=== PATIENT | female | born 1995 | race Caucasian/White ===

== ENCOUNTER → 2016-03-20 | Outpatient (CLI) | payer BC | LOC: MOB LAB 10:20 | PROVIDERS: ATTEND Student in an Organized Health Care Education/Training Program | DX: Z34.02 Encounter for supervision of normal first pregnancy, second trimester (principal); Z3A.16 16 weeks gestation of pregnancy | CPT/HCPCS: 87491; 87591 ==

== ENCOUNTER → 2016-04-18 | Outpatient (CLI) | payer BC ==
--- NOTE | 2016-04-18 15:06 | DI ---
US OB GTE 14 WEEKS,04/18/2016 9:40 AM: Clinical History: anatomic survey. Previous Exam: February 24, 2016 Findings: Multiple grayscale and color Doppler sonographic images are obtained through the pelvis demonstrating a normal cervix which is long and closed measuring 3.4 cm in length. Amniotic fluid index is subjectively normal. There is a single live intrauterine gestation in vertex presentation. There is normal spontaneous motion of the limbs and diaphragms. Detected Doppler heart tones measure 140. Estimated gestational age was determined by a composite of biparietal diameter, head circumference, a bdominal circumference and femur length yielding an estimated gestational age by ultrasound of 20 wee ks 4 days. Estimated weight was 368 g (49th percentile.) anatomic survey is within normal limits. Impression: Single live intrauterine gestation with size equal to dates.
== END ==
LOC: US 09:33
PROVIDERS: ATTEND Student in an Organized Health Care Education/Training Program
DX: Z36 Encounter for antenatal screening of mother (principal); Z3A.20 20 weeks gestation of pregnancy
CPT/HCPCS: 76805

== ENCOUNTER → 2016-06-06 | Outpatient (CLI) | payer BC ==
[2016-06-06 08:24] LABS: HEMATOCRIT 35.7 % (37.0-47.0); HEMOGLOBIN 11.9 g/dL (12.0-16.0); MEAN CORPUSCULAR HEMOGLOBIN 32.3 PG (27-31); MEAN CORPUSCULAR HGB CONC 33.3 g/dL (33-37); RED BLOOD COUNT 3.68 10^6/uL (4.20-5.40)
== END ==
LOC: LAB 07:07
PROVIDERS: ATTEND Student in an Organized Health Care Education/Training Program
DX: Z36 Encounter for antenatal screening of mother (principal); Z3A.27 27 weeks gestation of pregnancy
CPT/HCPCS: 36415; 82950; 85027

== ENCOUNTER 2016-06-08 09:13 | Outpatient (CLI) | payer BC ==
[2016-06-08] MEDS ORDERED: NORMAL SALINE 10 ML SYRINGE FLUSH IVP PRN (09:37)
[2016-06-08 10:00] VITALS: RESP 18; TEMP 98.4
[2016-06-08] MEDS: CALCIUM CARBONATE 500 MG (TUMS) CHEWABLE TABLET PO ONE (11:07)
[2016-06-08] MEDS: LANSOPRAZOLE 30 MG SOLUTAB PO ONE (11:08)
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
== END 2016-06-08 13:31 | disposition home or self-care (01) ==
LOC: OBOP 09:13
PROVIDERS: ATTEND Student in an Organized Health Care Education/Training Program
DX: O26.892 Other specified pregnancy related conditions, second trimester (principal); R10.84 Generalized abdominal pain; Z3A.27 27 weeks gestation of pregnancy
CPT/HCPCS: 59025; 76815; 81003; 99211

== ENCOUNTER → 2016-06-15 | Outpatient (CLI) | payer BC ==
--- NOTE | 2016-06-15 22:07 | DI ---
LIMITED OBSTETRICAL ULTRASOUND WITH CORINA AND CORD DOPPLER ULTRASOUND, 06/15/2016 1:55 PM Clinical History: Uterine size-dates discrepancy in the third trimester. Small for dates. Previous Exam: 06/08/2016. ADJUSTED LMP: 11/26/2015. There is a single live IUP currently in vertex presentation. Amnionic fluid content is normal for thi s stage of . Amniotic fluid index is 20.7 cm. activity is observed as follows: Cardiac , extremity, and respiratory. The placenta is anterior corpus and Grade 1. heart rate varies be tween 136-150 beats/minute and is regular. Cord Doppler ultrasound shows diastolic flow. Systolic/irvin stolic ratios are 4.1, 3.2 and 3.1 BPD, HC, AC, and FL measurements are 73 mm, 279 mm, 270 mm, and 55 mm, respectively. These measurements correspond to EGA values of 29 weeks 3 days, 30 weeks 4 days, 3 1 weeks 1 day, and 29 weeks 1 day, respectively. Composite EGA is 30 weeks 1 day The [place] EDC is 017. EDC by adjusted LMP is 09/01/2016. LMP percentile is 86%. Estimated weight is 1538 g, plus o r minus 225 g. Readin. Single live fetus with vertex presentation and normal amniotic fluid content for this stage of pr egnancy. CORINA is 20.7 cm. Placenta is anterior corpus and grade 1. 2. The composite EGA is 30 weeks 1 day with an ultrasound EDC of 08/23/2016. Based on the adjusted LM P date of 11/26/2015, the EDC would be 09/01/2016. 3. LMP percentile is 86%. Estimated weight is 1538 g, plus or minus 225 g.
== END ==
LOC: US 13:44
PROVIDERS: ATTEND Student in an Organized Health Care Education/Training Program
DX: O26.843 Uterine size-date discrepancy, third trimester (principal); Z3A.28 28 weeks gestation of pregnancy
CPT/HCPCS: 76815

== ENCOUNTER 2016-07-01 11:40 | Emergency (ER) | payer BC ==
[2016-07-01 12:16] LABS: BILIRUBIN,URINE NEGATIVE (NEG); COLOR,URINE YELLOW; GLUCOSE, URINE (UA) NEGATIVE (NEG); NITRATE,URINE NEGATIVE (NEG); OCCULT BLOOD,URINE NEGATIVE (NEG); PROTEIN,URINE NEGATIVE (NEG); UROBILINOGEN,URINE 0.2 EU/dL (0.2)
[2016-07-01 12:17] VITALS: RESP 16; TEMP 97.1
[2016-07-01 12:20] LABS: CLARITY,URINE CLEAR (CLEAR)
[2016-07-01] MEDS ORDERED: Sodium Chloride 0.9% 1,000 ML PRIMARY IV ONE (12:20)
[2016-07-01] MEDS ORDERED: NORMAL SALINE 10 ML SYRINGE FLUSH IVP PRN (12:20)
[2016-07-01 12:21] LABS: URINE SAMPLE TYPE CLEAN CATCH URINE
[2016-07-01] MEDS ORDERED: ONDANSETRON 4 MG/2 ML VIAL IVP ONE (12:21)
[2016-07-01 12:28] LABS: SQUAMOUS EPITHELIAL CELL,UR FEW
[2016-07-01 12:29] LABS: BASOPHILS # (AUTO) 0.05 10*3/UL; BASOPHILS % (AUTO) 0.5 % (0-1); EOSINOPHILS % (AUTO) 1.8 % (0-8); HEMATOCRIT 34.4 % (37.0-47.0); HEMOGLOBIN 11.5 g/dL (12.0-16.0); LYMPHOCYTES # (AUTO) 1.89 10*3/uL; MEAN CORPUSCULAR HEMOGLOBIN 31.3 PG (27-31); MEAN CORPUSCULAR HGB CONC 33.4 g/dL (33-37); MEAN CORPUSCULAR VOLUME 93.7 FL (81-99); MONOCYTES # (AUTO) 0.86 10*3/UL (0.3-0.8); MONOCYTES % (AUTO) 7.9 % (5-15); NEUTROPHILS # (AUTO) 7.88 10*3/UL; RED BLOOD COUNT 3.67 10^6/uL (4.20-5.40)
[2016-07-01 12:31] LABS: PLATELET MORPHOLOGY COMMENT NORMAL MORPHOLOGY (NORM); RBC MORPHOLOGY COMMENT NORMAL MORPHOLOGY (NORM); WBC MORPHOLOGY COMMENT NORMAL MORPHOLOGY (NORM)
[2016-07-01 12:35] LABS: BLOOD UREA NITROGEN 5 mg/dL (7-22); CALCIUM 8.5 mg/dL (8.7-10.7); EST GLOMERULAR FILTRATION > 60 (>60 ml/min/1.73m(2)); SERUM ALBUMIN 3.2 g/dL (3.5-4.8)
[2016-07-01] MEDS: MORPHINE SULFATE 4 MG/1 ML IVP ONE ×2 (13:15→13:31)
[2016-07-01] MEDS ORDERED: ACETAMINOPHEN WITH CODEINE 300 MG/30 MG TABLET PO ONE (14:17)
--- NOTE | 2016-07-01 14:40 | PDOC ---
Sore Throat/Dental Pain HPI - General Chief Complaint: Nasal/Mouth Problem /Injury Stated Complaint: LEFT LOWER DENTAL PAIN Date Seen by Provider: 07/01/16 Time Seen by Provider: 11:45 Source: POSITIVE: Patient Exam Limitations: POSITIVE: No limitations Nurse's Notes Reviewed & Considered: Yes - History of Present Illness Initial Comments: The patient is a 20-year-old at approximately 31 weeks gestational age who presents to the emergency department with left lower molar pain. She states that she has a cavity in one of her left lower molars. Over the past several days she has had progressively worsening pain. She has tried over-the- counter oral gel as well as Tylenol without any relief. She did also try the dental wax. She denies any fevers or chills or difficulty swallowing. In regard to her she reports that today she does not think the baby has been moving as much as normal. She denies any abdominal pain or cramping, urinary symptoms, vaginal bleeding or discharge. She sees Dr. Chavez for her OB care. - Patient Home Medications Home Medications: Home Medications Pnv95/Iron Fum/Folic Acid [ Caplet] 1 each PO DAILY tab 02/21/16 Escitalopram Oxalate [Lexapro] 1 tab PO QD #30 tab 04/17/16 Acetaminophen-Cod #3 Tablet [Tylenol with Codeine #3 Tablet] 1 each PO Q6H PRN # 15 tablet 07/01/16 Amoxicillin 500 mg PO Q8H #21 cap 07/01/16 - Patient Allergies Allergies/Adverse Reactions: Allergies Allergy/AdvReac Type Severity Reaction Status Date / Time No Known Allergies Allergy Verified 07/01/16 11:50 Past Medical History - heen HEENT History: Denies History Cardiovascular History: Denies History Respiratory History: Denies History Gastrointestinal History: Denies History Genitourinary History: Denies History Endocrine History: Denies History Musculoskeletal History: Denies History Prosthesis or Implant: No Neurological History: Denies History Blood Disorders: Denies History Psychiatric History: Depression Additional Psychiatric History: DIFFICULTY SLEEPING History of Sexually Transmitted Diseases: No Female Reproductive History: Denies History LMP: 11/2016 Additional Obstetrical History: CURRENTLY 31-32 WEEKS : 1 Para: 0 Cancer History: Denies History In Past Year Been Physically Harmed or Verbally Threatened: No (PER PATIENT) History of MDRO: No History of Other Communicable Diseases: No Tobacco Use: Never Smoker Alcohol Use: None Substance Use Type: None Previous Surgical History: Yes Type / Date of Surgery: BILATERAL EUSTACHIAN TUBES, MULTIPLE DENTAL SURGERIES A CHILD Anesthesia Reactions: No Malignant Hyperthermia: No Family History of Malignant Hyperthermia: No Significant Family History: No pertinent family hx Past Medical History Reviewed: Reviewed - No Changes ROS - Limitations ROS Limitations: No Limitations [place]: DENIES: Chills, Fever Cardiovascular: REPORTS: Denies Cardiac Symptoms Respiratory: REPORTS: Denies Resp Symptoms Gastrointestinal: DENIES: Abdominal Pain Sore Throat/Dental Pain Exam - General Appearance General Appearance: REPORTS: Alert, Cooperative, No Acute Distress - HEENT Head / Face: POSITIVE: No Facial Swelling Eyes: POSITIVE: Inspection Normal Ears: POSITIVE: Ears Normal Inspection Nose: POSITIVE: Inspection Normal Oropharynx: POSITIVE: Other (Examination left lower molar does reveal cavity with dental wax in place, there is some surrounding erythema and mild swelling) Neck: POSITIVE: Supple, Other (She does have some tenderness in the left submandibular region without any obvious swelling). NEGATIVE: Lymphadenopathy - Respiratory Respiratory: REPORTS: No Respiratory Distress, Breath Sounds Normal - Cardiovascular Cardiovascular: REPORTS: Regular Rate and Rhythm, Heart Sounds Normal - Abdomen Abdomen: Soft: (All Quadrants) Additional Abdominal Details: abdomen, nontender - Skin Skin: REPORTS: Intact. DENIES: Rash - Neurological / Psychological Neurological: POSITIVE: Oriented X3, Motor Normal, Sensation Normal Sore Throat/Dental Progress - Results Reviewed by me Lab Results Reviewed: Yes Lab Results:: Laboratory Results 07/01/16 07/01/16 Range/Units 12:00 12:20 WBC 10.94 H (4.8-10.8) 10^3/uL RBC 3.67 L (4.20-5.40) 10^6/uL Hgb 11.5 L (12.0-16.0) g/dL Hct 34.4 L (37.0-47.0) % MCV 93.7 (81-99) FL MCH 31.3 H (27-31) PG MCHC 33.4 (33-37) g/dL RDW Std Deviation 41.8 (39-50) fL RDW Coeff of Alicia 12.6 (11.5-14.5) % Plt Count 201 (140-350) 10*3/uL MPV 10.0 (7.4-12.2) FL Immature Gran % (Auto) 0.5 (0-5) % Neut % (Auto) 72.0 (50-80) % Lymph % (Auto) 17.3 (10-50) % Davis % (Auto) 7.9 (5-15) % Eos % (Auto) 1.8 (0-8) % Baso % (Auto) 0.5 (0-1) % Immature Gran # (Auto) 0.06 10*3/UL Neut # (Auto) 7.88 10*3/UL Lymph # (Auto) 1.89 10*3/uL Davis # (Auto) 0.86 H (0.3-0.8) 10*3/UL Eos # (Auto) 0.20 10*3/UL Baso # (Auto) 0.05 10*3/UL WBC Morphology Comment Normal morphology (NORM) Plt Morphology Comment Normal morphology (NORM) RBC Morph Comment Normal morphology (NORM) Sodium 136 (135-145) meq/L Potassium 4.1 (3.8-5.2) meq/L Chloride 107 (98-112) meq/L Carbon Dioxide 21 L (23-33) meq/L Anion Gap 8 (5-20) BUN 5 L (7-22) mg/dL Creatinine 0.5 (0.50-1.20) mg/dL Estimated GFR > 60 (>60 ml/min/1.73m(2)) BUN/Creatinine Ratio 10.00 (6-20) Glucose 76 L (78-110) mg/dL Calculated Osmolality 277.0 (267-292) mOsm/kg Calcium 8.5 L (8.7-10.7) mg/dL Total Bilirubin 0.4 (0.3-1.2) mg/dL AST 16 (8-39) IU/L ALT 22 (9-52) IU/L Alkaline Phosphatase 118 (38-126) IU/L Total Protein 6.6 (6.1-8.0) g/dL Albumin 3.2 L (3.5-4.8) g/dL Globulin 3.4 (2.50-4.10) g/dL Albumin/Globulin Ratio 0.90 L (1.3-2.0) mg/g Ur Collection Type Clean catch urine Urine Color Yellow Urine Clarity Clear (CLEAR) Urine pH 6.0 (5.0-8.5) Ur Specific [place] <=1.005 (1.005-1.030) Urine Protein Negative (NEG) mg/dl Urine Glucose (UA) Negative (NEG) mg/dL Urine Ketones Negative (NEG) Urine Occult Blood Negative (NEG) Urine Nitrate Negative (NEG) Urine Bilirubin Negative (NEG) Urine Urobilinogen 0.2 (0.2) EU/dL Ur Leukocyte Esterase Trace (NEG) Urine RBC None (NONE) /hpf Urine WBC 2-4 (NONE) Ur Squamous Epith Cells Few (NONE) Ur Renal Epithelial Cell None (NONE) Urine Crystals None Urine Bacteria None (NONE) Urine Casts None (NONE) Urine Mucus None (NONE) Urine Trichomonas None (NONE) Urine Yeast None (NONE) Ur Culture Indicated? Culture not set - Patient's Progress MDM / ED Course: The patient does have a dental abscess. Because of her reports of decreased movement I did contact Dr. Chavez who was on-call for OB and is the patient's OB provider. She recommended nonstress test and urinalysis. On the nonstress test the patient was showing some mild contractions. An IV was subsequent restarted and she received 1 L bolus of normal saline. She also received morphine 4 mg IV and Zofran 4 mg IV for pain and nausea. After fluids and emptying her bladder the current contractions resolved. She has a reactive strip. Dr. Chavez felt that the patient could be sent home with treatment for her dental infection. She was started on amoxicillin 500 mg 3 times a day for 7 days. She was given Tylenol with codeine which she can take one every 4-6 hours as needed for pain. She is advised return to the emergency room if increased pain, increased swelling of her jaw, fever, difficulty swallowing or dehydration, any related symptoms. She was advised follow-up with a dentist. She will also follow-up with Dr. Chavez regarding her OB care. - Consult Counseled: POSITIVE: Patient, RE: Lab Results, RE: DX, RE: Need for F/U Patient Care Time - Estimated PCT Patient Care Time (In Minutes): 25 Vital Signs - Recent Vital Signs Vital Signs: Vital Signs (Last 8 hours) Temp Pulse Resp BP Pulse Ox 07/01/16 11:40 97.1 F 73 16 110/80 97 - VS Reviewed Vital Signs Reviewed: Yes Discharge Clinical Impression: Dental abscess Discharge Disposition: Discharged to Home Condition: Stable Prescriptions / Orders: Amoxicillin 500 mg PO Q8H #21 cap Acetaminophen-Cod #3 Tablet [Tylenol with Codeine #3 Tablet] 1 each PO Q6H PRN # 15 tablet PRN Reason: Pain Patient Instructions Given at Discharge: Dental Abscess (ED) Additional Instructions: Start amoxicillin 500 mg 3 times a day for 7 days. Tylenol with codeine 1 every 6 hours as needed for pain. Push fluids. Return to the emergency room if increased pain or swelling, difficulty swallowing, dehydration, any worsening or change in symptoms. Recommend dental follow-up, call tomorrow to arrange appointment. Follow Up With: OZZIE CHAVEZ [Primary Care Provider] -
== END 2016-07-01 15:02 | disposition home or self-care (01) ==
LOC: ER 11:40
DX: O26.893 Other specified pregnancy related conditions, third trimester (principal); K04.7 Periapical abscess without sinus; Z3A.31 31 weeks gestation of pregnancy
CPT/HCPCS: 80053; 81001; 81003; 85025; 96361; 96374; 96375; 99283; J2270; J2405; J7030

== ENCOUNTER 2016-07-18 11:35 | Observation (INO) | payer BC ==
[2016-07-18] MEDS ORDERED: NORMAL SALINE 10 ML SYRINGE FLUSH IVP PRN (12:10)
[2016-07-18] MEDS: Lactated Ringers 1,000 ML PRIMARY IV SCH ×2 (12:50→23:25)
[2016-07-18 13:00] LABS: HEMOGLOBIN 11.8 g/dL (12.0-16.0); MEAN CORPUSCULAR HGB CONC 32.8 g/dL (33-37); MEAN CORPUSCULAR VOLUME 91.6 FL (81-99); MEAN PLATELET VOLUME 10.2 FL (7.4-12.2); RED BLOOD COUNT 3.93 10^6/uL (4.20-5.40)
[2016-07-18] MEDS: NIFEdipine 10 MG CAPSULE PO SCH ×4 (14:25→23:00)
--- NOTE | 2016-07-18 14:35 | DI ---
LIMITED OBSTETRICAL ULTRASOUND, 07/18/2016 12:44 PM Clinical History: contractions. Vaginal bleeding. Previous Exam: 06/15/2016. ADJUSTED LMP: 11/26/2015. There is a single live IUP currently in vertex presentation. Amnionic fluid content is normal. Amniot ic fluid index is 19.2 cm. activity is observed as follows: cardiac and extremity. The placenta is anterior corpus and Grade 2. Along the inferior margin of the placenta, there is a small collecti on of fluid in the subchorionic space. This fluid at most would be in the range of 2 mL in volume. Th ere is no evidence of abruption. heart rate is 142 beats/minute and regular. Readin. Single live fetus with vertex presentation and normal amniotic fluid content. Amniotic fluid inde x is 19.2 cm. 2. Placenta is anterior corpus and grade 2. There is no evidence of an abruption although there is a small fluid collection in the subchorionic space along the inferior margin of the placenta. The volu me of this fluid is probably in the range of 2 mL.
[2016-07-18] MEDS: BETAMET ACET/BETAMET NA PH 6 MG/1 ML - 5 ML IM SCH (14:55)
[2016-07-18] MEDS ORDERED: HYDROcodone-APAP 5 MG -325 MG TABLET PO ONE (15:14)
[2016-07-18 15:41] LABS: URINE SAMPLE TYPE CLEAN CATCH URINE; URINE SPECIFIC GRAVITY - MAN 1.007
[2016-07-18 15:42] LABS: AMPHETAMINE SCREEN NEGATIVE (NEG); CANNABINOID SCREEN,URINE NEGATIVE (NEG); COCAINE SCREEN NEGATIVE (NEG); METHADONE URINE SCREEN NEGATIVE (NEG); METHAMPHETAMINES SCREEN,URINE NEGATIVE (NEG); OPIATE SCREEN,URINE POSITIVE (NEG); TRICYCLIC ANTIDEPRESSANT,URINE NEGATIVE (NEG)
[2016-07-18] MEDS ORDERED: CLOTRIMAZOLE 21 GM 3-DAY VAG CREAM VAGINAL ONE (16:08)
[2016-07-18] MEDS: metroNIDAZOLE Tab 500 MG TAB PO SCH ×2 (16:09→21:55)
[2016-07-18] MEDS: CLOTRIMAZOLE 21 GM 3-DAY VAG CREAM VAGINAL SCH ×2 (16:10→21:55)
[2016-07-18] MEDS ORDERED: NIFEdipine 10 MG CAPSULE PO ONE (19:00)
[2016-07-18] MEDS ORDERED: CLOTRIMAZOLE 21 GM 3-DAY VAG CREAM VAGINAL SCH (21:00)
[2016-07-18] MEDS ORDERED: metroNIDAZOLE Tab 500 MG TAB PO SCH (21:00)
[2016-07-18] MEDS ORDERED: ESCITALOPRAM 10 MG TABLET PO SCH (22:30)
[2016-07-18] MEDS: AMOXICILLIN 500 MG CAPSULE PO SCH (23:30)
[2016-07-19] MEDS: NIFEdipine 10 MG CAPSULE PO SCH ×3 (03:13→15:10)
[2016-07-19] MEDS ORDERED: Prenatal Multivitamin Tab 1 TAB TAB PO SCH (09:00)
[2016-07-19] MEDS: AMOXICILLIN 500 MG CAPSULE PO SCH (09:31)
[2016-07-19] MEDS: metroNIDAZOLE Tab 500 MG TAB PO SCH (09:39)
[2016-07-19] MEDS: CLOTRIMAZOLE 21 GM 3-DAY VAG CREAM VAGINAL SCH (09:39)
[2016-07-19] MEDS: Lactated Ringers-OB Dept 1,000 ML PRIMARY IV SCH (15:10)
[2016-07-19] MEDS: Lactated Ringers 1,000 ML PRIMARY IV SCH (15:10)
[2016-07-19 15:24] VITALS: RESP 18; TEMP 97.8
[2016-07-19] MEDS: BETAMET ACET/BETAMET NA PH 6 MG/1 ML - 5 ML IM SCH (15:39)
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
--- NOTE | 2016-07-22 21:52 | OB.PROGRES ---
Date and Time of Service: 07/19/16 @ 1034 Interval History: Pt reports feeling much better today. Denies any cramping, abdominal or pelvic pain. No further spotting or vaginal bleeding. No leakage of fluid. Baby is moving around well. She did receive procardia every 4 hours through the noc and tolerated this well. Normal voiding. No nausea or vomiting. Tolerating regular diet. Objective - Cervical Exam Cervical Exam: no recheck since yesterday [place]: no contractions or irritability noted since last noc. Heart Rate: reactive, no decels noted. + accels and moderate variability Heart Rate Interpretation Category: Category I - Labs CBC and BMP: 07/18/16 12:55 - Vital Signs Last Taken Vital Signs: Vital Signs - Last Taken Temperature 97.8 F 07/19/16 07:00 Pulse Rate 83 07/19/16 09:00 Respiratory Rate 18 07/19/16 08:00 Blood Pressure 122/61 07/19/16 09:00 Pulse Ox 98 07/18/16 19:18 Assessment and Plan - Patient Problems (1) Abdominal pain during Status: Acute Qualifiers: Trimester: third trimester Qualified Description: Abdominal pain during , third trimester Qualifier Code(s): (O26.893) Other specified related conditions, third trimester, (R10.9) Unspecified abdominal pain - Assessment / Plan Additional Assessment/Plan Details: -pt received 1st dose of celestone yesterday, will get second dose this afternoon. -will attend dental visit this afternoon to get her decayed tooth pulled-- remains on amoxicillin for this. -continue flagyl for BV x 1 week total. -continue clotrimazole for yeast vaginitis x 1 week total. -push fluids. Take it easy at home. -take procardia every 4 hours for a few days and then may just use it q4h prn for more than 4 painful contractions in 1 hour. -f/u: as scheduled in the office next week/sooner prn.
== END 2016-07-19 15:45 | disposition home or self-care (01) ==
LOC: OBOP 11:35 → OBIP 22:29
PROVIDERS: ADMIT Family Medicine; ATTEND Family Medicine
DX: O26.893 Other specified pregnancy related conditions, third trimester (principal); R10.9 Unspecified abdominal pain
CPT/HCPCS: 76815; 80305; 81003; 82542; 82731; 85027; 87150; 87480; 87491; 87510; 87591; 87660; J0702; 96372; J7120

== ENCOUNTER 2016-07-22 20:08 | Observation (INO) | payer BC ==
[~2016-07-22 20:08] MED LIST: NORMAL SALINE 10 ML SYRINGE FLUSH IVP PRN
[2016-07-22] MEDS: Lactated Ringers 1,000 ML PRIMARY IV SCH (21:30)
[2016-07-22 21:39] LABS: HEMATOCRIT 33.3 % (37.0-47.0); HEMOGLOBIN 11.1 g/dL (12.0-16.0); MEAN CORPUSCULAR HEMOGLOBIN 30.7 PG (27-31); MEAN CORPUSCULAR HGB CONC 33.3 g/dL (33-37); MEAN CORPUSCULAR VOLUME 92.2 FL (81-99); MEAN PLATELET VOLUME 10.2 FL (7.4-12.2); RED BLOOD COUNT 3.61 10^6/uL (4.20-5.40)
[2016-07-22 21:42] LABS: BILIRUBIN,URINE NEGATIVE (NEG); CLARITY,URINE CLEAR (CLEAR); COLOR,URINE YELLOW; GLUCOSE, URINE (UA) NEGATIVE (NEG); NITRATE,URINE NEGATIVE (NEG); OCCULT BLOOD,URINE NEGATIVE (NEG); PROTEIN,URINE NEGATIVE (NEG); UROBILINOGEN,URINE 0.2 mg/dL (0.2)
[2016-07-22 21:43] LABS: URINE SAMPLE TYPE CLEAN CATCH URINE
[2016-07-22 21:46] LABS: BACTERIA,URINE RARE; RBC,URINE 0 /hpf; SQUAMOUS EPITHELIAL CELL,UR MODERATE; WBC,URINE 0
[2016-07-22 21:49] LABS: BLOOD UREA NITROGEN 11 mg/dL (7-22); CALCIUM 8.7 mg/dL (8.7-10.7); EST GLOMERULAR FILTRATION > 60 (>60 ml/min/1.73m(2)); SERUM ALBUMIN 3.1 g/dL (3.5-4.8)
[2016-07-22] MEDS ORDERED: NIFEdipine 10 MG CAPSULE PO ONE ×2 (22:07→22:13)
[2016-07-22] MEDS ORDERED: LIDOCAINE W/ SODIUM BICARB 0.5 ML SYR SUBD PRN (22:34)
[2016-07-22] MEDS ORDERED: NORMAL SALINE 10 ML SYRINGE FLUSH IVP PRN (22:34)
[2016-07-22] MEDS ORDERED: ONDANSETRON 4 MG/2 ML VIAL IVP PRN (22:34)
--- NOTE | 2016-07-22 22:55 | OB.PROGRES ---
Interval History: The patient is a 20-year-old with an IUP at 34 weeks gestation who presented to labor and delivery this evening after having contractions for most of the day with a contractions increasing in frequency and discomfort throughout the day. Patient has been on Procardia 20 mg by mouth every 4 hours for several days since she was admitted for observation earlier in the week for contractions (07/18/2016-07/19/2016). At that time, the patient's cervix was closed. Patient did receive a course of Celestone 12 mg IM every 24 hours 2 doses. That was when the patient was placed on Procardia. Patient had formal ultrasound which showed the placenta to be anterior and a grade 2 placenta. There was no evidence of placental abruption. There was a small collection of fluid-2 mL-inferiorly at the edge of the placenta but no specific placental abruption noted per radiology. Prior to several days ago, patient did have contractions a couple of months ago according to the patient's mother and presented to labor and delivery but was sent home. Patient also states that she has mild right upper quadrant discomfort. Patient not sure if this is secondary to her petite size and the baby kicking her. The patient has been on amoxicillin for a tooth abscess, metronidazole for bacterial vaginosis and also was treated for a vaginal yeast infection. The patient's current medications are amoxicillin, metronidazole, Procardia, Lexapro 5 mg daily, multivitamin. Past medical history significant for depression and anxiety. Past surgical history noncontributory No known drug allergies. Patient is allergic to tomatoes. Patient quit tobacco couple months ago. No alcohol, no drugs during . Objective - Cervical Exam Cervical Exam: 03/26/- cephalic. Cervix is moderate in consistency. No blood with my cervical exam. [place]: Contractions every 1-3 minutes Heart Rate Interpretation Category: Category I - Labs CBC and BMP: 07/22/16 21:36 07/22/16 21:36 Labs - Last 24 Hours: Laboratory Results 07/22/16 Range/Units 21:36 WBC 11.84 H (4.8-10.8) 10^3/uL RBC 3.61 L (4.20-5.40) 10^6/uL Hgb 11.1 L (12.0-16.0) g/dL Hct 33.3 L (37.0-47.0) % MCV 92.2 (81-99) FL MCH 30.7 (27-31) PG MCHC 33.3 (33-37) g/dL RDW Std Deviation 41.3 (39-50) fL RDW Coeff of Alicia 12.8 (11.5-14.5) % Plt Count 253 (140-350) 10*3/uL MPV 10.2 (7.4-12.2) FL Sodium 134 L (135-145) meq/L Potassium 4.0 (3.8-5.2) meq/L Chloride 106 (98-112) meq/L Carbon Dioxide 21 L (23-33) meq/L Anion Gap 7 (5-20) BUN 11 (7-22) mg/dL Creatinine 0.5 (0.50-1.20) mg/dL Estimated GFR > 60 (>60 ml/min/1.73m(2)) BUN/Creatinine Ratio 22.00 H (6-20) Glucose 81 (78-110) mg/dL Calculated Osmolality 275.0 (267-292) mOsm/kg Calcium 8.7 (8.7-10.7) mg/dL Total Bilirubin 0.3 (0.3-1.2) mg/dL AST 14 (8-39) IU/L ALT 19 (9-52) IU/L Alkaline Phosphatase 126 (38-126) IU/L Total Protein 5.9 L (6.1-8.0) g/dL Albumin 3.1 L (3.5-4.8) g/dL Globulin 2.8 (2.50-4.10) g/dL Albumin/Globulin Ratio 1.10 L (1.3-2.0) mg/g Ur Collection Type Clean catch urine Urine Color Yellow Urine Clarity Clear (CLEAR) Urine pH 7.0 (5.0-8.5) Ur Specific [place] 1.010 (1.005-1.030) Urine Protein Negative (NEG) mg/dl Urine Glucose (UA) Negative (NEG) mg/dL Urine Ketones Negative (NEG) Urine Occult Blood Negative (NEG) Urine Nitrate Negative (NEG) Urine Bilirubin Negative (NEG) Urine Urobilinogen 0.2 (0.2) mg/dL Ur Leukocyte Esterase Negative (NEG) Urine RBC 0 (NONE) /hpf Urine WBC 0 (NONE) Ur Squamous Epith Cells Moderate (NONE) Ur Renal Epithelial Cell None (NONE) Urine Crystals None Urine Bacteria Rare (NONE) Urine Casts None Urine Mucus None (NONE) Urine Trichomonas None (NONE) Urine Yeast None (NONE) Ur Culture Indicated? Culture not set Fibronectin Positive Fibronect Spec Quality No - Vital Signs Last Taken Vital Signs: Vital Signs - Last Taken Temperature 98.2 F 07/22/16 20:08 Pulse Rate 74 07/22/16 20:08 Respiratory Rate 20 07/22/16 20:08 Blood Pressure 139/79 07/22/16 20:08 Pulse Ox 100 07/22/16 20:08 - Additional Details Additional Details: Lungs clear to auscultation Heart regular rate and rhythm Abdomen is gravid and soft without guarding or rebound. Mild right upper quadrant tenderness with palpation. Again, no guarding or rebound Extremities with trace to 1+ pitting edema bilaterally lower extremity Reflexes 1+ patellar tendon bilaterally No clonus Assessment and Plan - Assessment / Plan Additional Assessment/Plan Details: Assessment: IUP 34 weeks with contractions. Patient has been on Procardia 20 mg every 4 hours by mouth. Patient with breakthrough contractions today. Urine specific gravity today was 1.015. UA with micro-was negative for urinary tract infection. The patient's cervix has changed from closed on June to 1 cm this evening on 07/22/2016. Only 30% effaced and the cervix is moderate in consistency. There was also no blood with the exam which is good. The patient is also status post a course of Celestone IM for lung maturity on 19 Jul 2016. Currently at 2302 hours on 07/22/2016 the patient stated that her contractions were starting to decrease in intensity. However, she could still feel the contractions in her back. The monitor shows the contractions to be every 2-3 minutes. Blood pressures mildly elevated at 139/79 considering that patient is on Procardia 20 mg every 4 hours. Negative protein in UA dip fibronectin was positive with history of FFN negative on 07/18/2016 Group B strep was negative on 07/18/2016 Patient with recent bacterial vaginosis infection and is still taking metronidazole Patient with recent tooth abscess and is taking amoxicillin Patient with depression and anxiety and is taking Lexapro 5 mg a day and doing well with this dose Plan: Currently, I would like to observe the patient here. Close observation with external monitoring. Procardia 10 mg every 3 hours by mouth instead of Procardia 20 mg every 4 hours. I would like to do this so I could observe the patient's blood pressures but also increase the frequency of the Procardia. The patient may continue her treatment with amoxicillin, metronidazole, Lexapro. If the patient's contractions increase in intensity or frequency or the patient starts to dilate her cervix more, I will consult our maternal medicine physicians in [place], [place] since there is not a intensive care unit in the [facility]. Our consultants are in [place], [place]. If the patient's contractions decreased in frequency and intensity, the patient will be followed here until they improve dramatically or resolve.
[2016-07-22] MEDS ORDERED: HYDROXYZINE PAMOATE 25 MG CAPSULE PO ONE (23:42)
[2016-07-23] MEDS: NIFEdipine 10 MG CAPSULE PO SCH ×8 (01:00→21:40)
[2016-07-23] MEDS: Lactated Ringers 1,000 ML PRIMARY IV SCH ×3 (05:33→21:42)
[2016-07-23] MEDS ORDERED: Prenatal Multivitamin Tab 1 TAB TAB PO SCH (09:00)
--- NOTE | 2016-07-23 09:14 | OB.PROGRES ---
Interval History: The patient slept well last night. She does not really feel contractions and her right upper quadrant abdominal discomfort has resolved. The patient was given Atarax or hydroxyzine 25 mg and the patient believes this helped her sleep well. No complaints this morning. No pelvic pressure. Objective - Cervical Exam Cervical Exam: Deferred exam this morning [place]: Intermittent contractions every 1to 3 to 6 minutes but patient cannot feel these contractions or they can be felt minimally. Heart Rate Interpretation Category: Category I - Labs CBC and BMP: 07/22/16 21:36 07/22/16 21:36 Labs - Last 24 Hours: Laboratory Results 07/22/16 Range/Units 21:36 WBC 11.84 H (4.8-10.8) 10^3/uL RBC 3.61 L (4.20-5.40) 10^6/uL Hgb 11.1 L (12.0-16.0) g/dL Hct 33.3 L (37.0-47.0) % MCV 92.2 (81-99) FL MCH 30.7 (27-31) PG MCHC 33.3 (33-37) g/dL RDW Std Deviation 41.3 (39-50) fL RDW Coeff of Alicia 12.8 (11.5-14.5) % Plt Count 253 (140-350) 10*3/uL MPV 10.2 (7.4-12.2) FL Sodium 134 L (135-145) meq/L Potassium 4.0 (3.8-5.2) meq/L Chloride 106 (98-112) meq/L Carbon Dioxide 21 L (23-33) meq/L Anion Gap 7 (5-20) BUN 11 (7-22) mg/dL Creatinine 0.5 (0.50-1.20) mg/dL Estimated GFR > 60 (>60 ml/min/1.73m(2)) BUN/Creatinine Ratio 22.00 H (6-20) Glucose 81 (78-110) mg/dL Calculated Osmolality 275.0 (267-292) mOsm/kg Calcium 8.7 (8.7-10.7) mg/dL Total Bilirubin 0.3 (0.3-1.2) mg/dL AST 14 (8-39) IU/L ALT 19 (9-52) IU/L Alkaline Phosphatase 126 (38-126) IU/L Total Protein 5.9 L (6.1-8.0) g/dL Albumin 3.1 L (3.5-4.8) g/dL Globulin 2.8 (2.50-4.10) g/dL Albumin/Globulin Ratio 1.10 L (1.3-2.0) mg/g Ur Collection Type Clean catch urine Urine Color Yellow Urine Clarity Clear (CLEAR) Urine pH 7.0 (5.0-8.5) Ur Specific [place] 1.010 (1.005-1.030) Urine Protein Negative (NEG) mg/dl Urine Glucose (UA) Negative (NEG) mg/dL Urine Ketones Negative (NEG) Urine Occult Blood Negative (NEG) Urine Nitrate Negative (NEG) Urine Bilirubin Negative (NEG) Urine Urobilinogen 0.2 (0.2) mg/dL Ur Leukocyte Esterase Negative (NEG) Urine RBC 0 (NONE) /hpf Urine WBC 0 (NONE) Ur Squamous Epith Cells Moderate (NONE) Ur Renal Epithelial Cell None (NONE) Urine Crystals None Urine Bacteria Rare (NONE) Urine Casts None Urine Mucus None (NONE) Urine Trichomonas None (NONE) Urine Yeast None (NONE) Ur Culture Indicated? Culture not set Fibronectin Positive Fibronect Spec Quality No - Vital Signs Last Taken Vital Signs: Vital Signs - Last Taken Temperature 97.8 F 07/23/16 07:00 Pulse Rate 71 07/23/16 08:00 Respiratory Rate 16 07/23/16 08:00 Blood Pressure 125/78 07/23/16 07:00 Pulse Ox 95 07/23/16 07:00 - Additional Details Additional Details: Lungs clear to auscultation Heart regular rate and rhythm Abdomen is gravid, soft, nontender, no guarding, no rebound Extremities with negative [place] Assessment and Plan - Assessment / Plan Additional Assessment/Plan Details: Assessment: IUP 34 and one sevenths weeks Patient without active labor. Cervix not checked this morning secondary to patient not feeling contractions. The patient is receiving Procardia 10 mg by mouth every 3 hours currently. contractions with some cervical change from 07/19/2016 to last evening 07/22/2016 from the cervix being closed to 1 cm. Patient is status post one course of Celestone 12 mg IM on 07/18/2016 and 07/19/2016. Blood pressure was high normal last evening when the patient presented to labor and delivery at 139/79. Blood pressures have been normal since that time. 24- hour urine for total protein is in process. Negative urine protein on urinalysis sent to the lab last evening. Patient asymptomatic without headache. Right upper quadrant pain resolved and liver function tests were normal. H&H and platelets were also normal. Creatinine was 0.5. fibronectin was positive last evening with fibronectin negative on 07/18/2016 Group B strep was negative several days ago Recent history of a tooth abscess and patient taking amoxicillin Patient with recent bacterial vaginosis and vaginal yeast infection. The patient is still taking metronidazole for the BV infection. Plan: Continue to observe patient today. Patient really has not been awake this morning yet and has not eaten. Regular diet has been ordered. I would like to continue the Procardia 10 mg every 3 hours currently but may consider changing to every 4 hours. Patient was on Procardia 20 mg every 4 hours. Patient seemed to tolerate this dose well but patient did state that she got lightheaded when she was lying down sometimes. My biggest concern is perfusion to the placenta since Procardia is an antihypertensive but again the patient's blood pressure was even high normal last evening when the patient presented. On the monitor, there were never any late decelerations noted. This morning on an external monitoring there are good heart rate accelerations noted. The patient will continue to collect a 24-hour urine for total protein Continue observation. Perhaps discharged later today or I may observe the patient until tomorrow morning to complete the collection of a 24-hour urine and to determine how the patient does with respect to contractions. I may check the patient's cervix later today but with the contractions not felt by the patient, I prefer not to check the patient's cervix currently.
--- NOTE | 2016-07-23 19:07 | OB.PROGRES ---
Interval History: The patient has intermittently felt contractions and it was noted that when her bladder was full, sometimes she contracts more. However, currently the patient has been kiley more and her bladder is not full. No leak of fluid. Positive movement. No bleeding. Objective - Cervical Exam Cervical Exam: 03/26/ cephalic. No blood with exam. Cervix was moderate to soft in consistency. No more dilated than last evening when I checked the patient. Perhaps minimally more soft in consistency. [place]: Contractions every 2-3 minutes intermittently. Currently contractions every 2-3 minutes. Procardia was just administered to the patient at 1900 hrs. Heart Rate Interpretation Category: Category I - Labs CBC and BMP: 07/22/16 21:36 07/22/16 21:36 Labs - Last 24 Hours: Laboratory Results 07/22/16 Range/Units 21:36 WBC 11.84 H (4.8-10.8) 10^3/uL RBC 3.61 L (4.20-5.40) 10^6/uL Hgb 11.1 L (12.0-16.0) g/dL Hct 33.3 L (37.0-47.0) % MCV 92.2 (81-99) FL MCH 30.7 (27-31) PG MCHC 33.3 (33-37) g/dL RDW Std Deviation 41.3 (39-50) fL RDW Coeff of Alicia 12.8 (11.5-14.5) % Plt Count 253 (140-350) 10*3/uL MPV 10.2 (7.4-12.2) FL Sodium 134 L (135-145) meq/L Potassium 4.0 (3.8-5.2) meq/L Chloride 106 (98-112) meq/L Carbon Dioxide 21 L (23-33) meq/L Anion Gap 7 (5-20) BUN 11 (7-22) mg/dL Creatinine 0.5 (0.50-1.20) mg/dL Estimated GFR > 60 (>60 ml/min/1.73m(2)) BUN/Creatinine Ratio 22.00 H (6-20) Glucose 81 (78-110) mg/dL Calculated Osmolality 275.0 (267-292) mOsm/kg Calcium 8.7 (8.7-10.7) mg/dL Total Bilirubin 0.3 (0.3-1.2) mg/dL AST 14 (8-39) IU/L ALT 19 (9-52) IU/L Alkaline Phosphatase 126 (38-126) IU/L Total Protein 5.9 L (6.1-8.0) g/dL Albumin 3.1 L (3.5-4.8) g/dL Globulin 2.8 (2.50-4.10) g/dL Albumin/Globulin Ratio 1.10 L (1.3-2.0) mg/g Ur Collection Type Clean catch urine Urine Color Yellow Urine Clarity Clear (CLEAR) Urine pH 7.0 (5.0-8.5) Ur Specific [place] 1.010 (1.005-1.030) Urine Protein Negative (NEG) mg/dl Urine Glucose (UA) Negative (NEG) mg/dL Urine Ketones Negative (NEG) Urine Occult Blood Negative (NEG) Urine Nitrate Negative (NEG) Urine Bilirubin Negative (NEG) Urine Urobilinogen 0.2 (0.2) mg/dL Ur Leukocyte Esterase Negative (NEG) Urine RBC 0 (NONE) /hpf Urine WBC 0 (NONE) Ur Squamous Epith Cells Moderate (NONE) Ur Renal Epithelial Cell None (NONE) Urine Crystals None Urine Bacteria Rare (NONE) Urine Casts None Urine Mucus None (NONE) Urine Trichomonas None (NONE) Urine Yeast None (NONE) Ur Culture Indicated? Culture not set Fibronectin Positive Fibronect Spec Quality No - Vital Signs Last Taken Vital Signs: Vital Signs - Last Taken Temperature 98.7 F 07/23/16 17:46 Pulse Rate 84 07/23/16 17:46 Respiratory Rate 18 07/23/16 17:46 Blood Pressure 137/76 07/23/16 17:46 Pulse Ox 98 07/23/16 17:46 - Additional Details Additional Details: Abdomen is gravid and soft and nontender without guarding or rebound Assessment and Plan - Assessment / Plan Additional Assessment/Plan Details: IUP 34 and 1/7 week with contractions. Patient is status post a course of Celestone on & 19 jul 2016 GBS negative fibronectin was positive last evening. The patient's cervix is unchanged but the patient is kiley currently. Plan: I would like to continue to keep the patient here under observation secondary to the patient's significant contractions that the patient can feel again now. Continue Procardia 10 mg every 3 hours. Continue to evaluate closely. Hopefully will be able to discharge patient tomorrow morning. Hydroxyzine or Atarax 25 mg by mouth at 2100 hrs. this evening to help with sleep. Patient expressed understanding of the current plan.
[2016-07-23] MEDS ORDERED: HYDROXYZINE PAMOATE 25 MG CAPSULE PO ONE (21:00)
[2016-07-24] MEDS: NIFEdipine 10 MG CAPSULE PO SCH ×3 (01:07→06:40)
[2016-07-24 04:15] VITALS: RESP 16
--- NOTE | 2016-07-24 08:30 | OB.PROGRES ---
Interval History: The patient states that she slept well last night with the Atarax. Her contractions have been infrequent. No pelvic pressure. No bleeding. Positive movement, no leak of fluid. The patient would like to go home. She has an appointment with her OB provider today. She is still collecting her 24-hour urine for total protein and that is completed today at 1600 hrs. Objective - Cervical Exam Cervical Exam: 3 cephalic and soft to moderate in consistency. No blood with my exam on my gloved digit. [place]: Occasional Heart Rate Interpretation Category: Category I - Labs CBC and BMP: 07/22/16 21:36 07/22/16 21:36 - Vital Signs Last Taken Vital Signs: Vital Signs - Last Taken Temperature 98.0 F 07/24/16 02:00 Pulse Rate 70 07/24/16 04:00 Respiratory Rate 16 07/24/16 04:00 Blood Pressure 124/72 07/24/16 04:00 Pulse Ox 99 07/24/16 04:00 - Additional Details Additional Details: Lungs clear to auscultation Heart regular rate and rhythm Abdomen is gravid and soft and nontender without guarding or rebound Assessment and Plan - Assessment / Plan Additional Assessment/Plan Details: Assessment: IUP 34-2/7 weeks with contraction. No change in cervix and contractions have decreased in frequency significantly with patient voiding more regularly and with decreased activity. Patient has been administer Procardia 10 mg every 3 hours. Group B strep was negative fibronectin was positive this hospitalization Patient is status post 1 course of Celestone for lung maturation on Patient's cervix is unchanged and patient would like to be discharged home. Patient's blood pressures have been normal but sometimes high normal. Never during hospitalization over 140/90. However, patient is on antihypertensive for contractions. Plan: Discharge home this morning Continue collection of 24-hour urine for total protein. The patient should continue Procardia 10 mg every 3 hours. The patient was previously on 10 mg 2 capsules by mouth every 4 hours. Patient does have 10 mg capsules at home. Keep appointment later today or patient may reschedule for tomorrow if she would like. Depending upon her physician schedule, rescheduling may not be easily completed. Decreased activity at home with couch rest and bathroom privileges. No doing laundry, no cooking for long periods of time. labor precautions and kick counts were discussed with patient. Patient expressed understanding. Patient will return for regular contractions. Or decreased movement. Patient ready for discharge home and for decreased activity at home. Patient should finish amoxicillin and metronidazole or Flagyl. Patient should continue Lexapro and multivitamins. Patient will need repeat group B strep culture in a couple weeks.
[2016-07-24 08:50] VITALS: TEMP 97.6
[2016-07-24 17:13] LABS: 24 HOUR URINE TOTAL VOLUME 3725 ML
== END 2016-07-24 08:45 | disposition home or self-care (01) ==
LOC: OBOP 20:08 → OBIP 22:34
PROVIDERS: ADMIT Obstetrics & Gynecology; ATTEND Obstetrics & Gynecology
DX: O60.03 Preterm labor without delivery, third trimester (principal); Z3A.34 34 weeks gestation of pregnancy
CPT/HCPCS: 80053; 81001; 81003; 82731; 84156; 85027; Q0177 ×2; J7120

== ENCOUNTER 2016-07-28 20:44 | Outpatient (CLI) | payer BC ==
[2016-07-28 20:55] VITALS: RESP 20; TEMP 98
[2016-07-28] MEDS ORDERED: NORMAL SALINE 10 ML SYRINGE FLUSH IVP PRN (20:55)
[2016-07-28] MEDS: Sodium Chloride 0.9% 2,000 ML PRIMARY IV ONE ×2 (21:07→21:35)
[2016-07-28] MEDS ORDERED: ONDANSETRON 4 MG/2 ML VIAL IVP ONE (21:10)
[2016-07-28] MEDS ORDERED: ONDANSETRON 4 MG/2 ML VIAL ONE (21:10)
[2016-07-28 21:11] LABS: HEMATOCRIT 35.8 % (37.0-47.0); HEMOGLOBIN 12.1 g/dL (12.0-16.0); MEAN CORPUSCULAR HEMOGLOBIN 30.4 PG (27-31); MEAN CORPUSCULAR HGB CONC 33.8 g/dL (33-37); MEAN CORPUSCULAR VOLUME 89.9 FL (81-99); RED BLOOD COUNT 3.98 10^6/uL (4.20-5.40)
[2016-07-28 21:21] LABS: BLOOD UREA NITROGEN 11 mg/dL (7-22); CALCIUM 8.9 mg/dL (8.7-10.7); EST GLOMERULAR FILTRATION > 60 (>60 ml/min/1.73m(2)); SERUM ALBUMIN 3.9 g/dL (3.5-4.8)
--- NOTE | 2016-08-03 09:50 | PDOC(PROG) ---
Intake - - Reason for Visit/Chief Complaint: Contractions, Other Additional Reason(s) for Visit: vomiting Admitted From: Home - Estimated Due Date: 09/02/16 Gestational Age in Weeks and Days: 35 Weeks and 5 Days : 1 Para: 0 - Labs Blood Type and Rh: O+ Maternal - Vital Signs Last Taken Vital Signs: Vital Signs - Last Taken Temperature 98.0 F 07/28/16 20:51 Pulse Rate 78 07/28/16 20:51 Respiratory Rate 20 07/28/16 20:51 Blood Pressure Pulse Ox 98 07/28/16 20:51 - Uterine Activity Uterine Contraction Monitor Mode: External Contraction Frequency(minutes): 5 Contraction Duration (seconds): 50-70 Uterine Contraction Pattern: Irregular Uterine Contraction Intensity: Mild - Cervical Exam Cervical Dilation (cm): 1 Station: -2 Exam Performed By: Carlene Brandon RN - Vaginal Discharge Vaginal Bleeding Amount: None Monitoring - Uterine Activity Uterine Contraction Monitor Mode: External Contraction Frequency(minutes): 5 Contraction Duration (seconds): 50-70 Uterine Contraction Pattern: Irregular Uterine Contraction Intensity: Mild Results - Labs CBC and BMP: 07/28/16 21:07 07/28/16 21:07 - Bedside Testing Bedside Urine Ketone: Negative Bedside Urine Leukocytes Esterase: Large Bedside Urine Nitrite: Negative Bedside Urine Occult Blood: Negative Bedside Urine Protein: Negative Bedside Specific [place]: 1.010 Assessment and Plan - Patient Problems (1) uterine contractions in third trimester, antepartum Status: Acute (2) Nausea and vomiting during Status: Acute - Assessment / Plan Additional Assessment/Plan Details: -no cervical change since last week. -has received course of steroids 2-3 weeks ago. -GBS already done. -received 2 L NS and was feeling better. -d/c home on procardia 10 mg po q3h as she was doing previously. -f/u: as scheduled in the office
== END 2016-07-28 22:20 | disposition home or self-care (01) ==
LOC: OBOP 20:44
PROVIDERS: ATTEND Family Medicine
DX: O60.03 Preterm labor without delivery, third trimester (principal); O21.2 Late vomiting of pregnancy; Z3A.35 35 weeks gestation of pregnancy
CPT/HCPCS: 59025; 80053; 81003; 85027; 96361; 96374; 99211; J2405; J7030

== ENCOUNTER 2016-08-08 00:03 | Observation (INO) | payer BC ==
[2016-08-08] MEDS ORDERED: Sodium Chloride 0.9% 1,000 ML PRIMARY IV ONE (00:41)
[2016-08-08] MEDS: NIFEdipine 10 MG CAPSULE PO SCH ×5 (00:55→13:22)
[2016-08-08 02:14] LABS: BILIRUBIN,URINE NEGATIVE (NEG); CLARITY,URINE CLOUDY (CLEAR); COLOR,URINE YELLOW; GLUCOSE, URINE (UA) NEGATIVE (NEG); NITRATE,URINE NEGATIVE (NEG); OCCULT BLOOD,URINE NEGATIVE (NEG); PH,URINE 8.5 (5.0-8.5); PROTEIN,URINE NEGATIVE (NEG); UROBILINOGEN,URINE 0.2 mg/dL (0.2)
[2016-08-08 02:22] LABS: BACTERIA,URINE RARE; RBC,URINE RARE /hpf; SQUAMOUS EPITHELIAL CELL,UR FEW; URINE CRYSTALS MANY; URINE SAMPLE TYPE CLEAN CATCH URINE
[2016-08-08] MEDS: Lactated Ringers 1,000 ML PRIMARY IV SCH ×2 (03:55→12:32)
[2016-08-08] MEDS ORDERED: NIFEdipine 10 MG CAPSULE PO SCH (06:00)
[2016-08-08 06:51] VITALS: RESP 18; TEMP 97.8
[2016-08-08] MEDS ORDERED: ACETAMINOPHEN 325 MG TABLET PO ONE (07:21)
[2016-08-08] MEDS ORDERED: ONDANSETRON 4 MG/2 ML VIAL IVP PRN (08:32)
[2016-08-08] MEDS ORDERED: NORMAL SALINE 10 ML SYRINGE FLUSH IVP PRN (08:32)
[2016-08-08] MEDS ORDERED: LIDOCAINE W/ SODIUM BICARB 0.5 ML SYR SUBD PRN (08:32)
[2016-08-08] MEDS ORDERED: Lactated Ringers 1,000 ML PRIMARY IV SCH (08:45)
[2016-08-08] MEDS ORDERED: Famotidine Inj 20 MG in Normal Saline Flush 10 ML IVP ONE (15:07)
[2016-08-09] MEDS ORDERED: Prenatal Multivitamin Tab 1 TAB TAB PO SCH (09:00)
--- NOTE | 2016-08-19 16:58 | OB.PROGRES ---
Date and Time of Service: 08/08/16 Interval History: Pt is a 21 yo G1 at 36 3/7 weeks by early u/s who presented to labor and delivery early this morning with the complaint of contractions. She has been evaluated on the unit for this complaint several times over the past several weeks, but has had no significant cervical change. Her cervix had not changed earlier today either. She was monitored overnoc and given procardia and hydrated IV with no real change in her contractions. She states this morning that, for the most part, she is not feeling her contractions. She denies any gushes of fluid, abnormal discharge or vaginal bleeding. Baby has been moving well. Objective - Cervical Exam Cervical Exam: /-2 per ZO Junior Farwell: mild contractions every 2-4 minutes per the monitor Heart Rate: baseline of 120, + accels, no decels noted. Heart Rate Interpretation Category: Category I - Vital Signs Last Taken Vital Signs: Vital Signs - Last Taken Temperature 97.8 F 08/08/16 06:45 Pulse Rate 55 L 08/08/16 10:01 Respiratory Rate 18 08/08/16 06:45 Blood Pressure 130/86 08/08/16 10:01 Pulse Ox 98 08/08/16 06:45 Assessment and Plan - Patient Problems (1) contractions Status: Acute - Assessment / Plan Additional Assessment/Plan Details: -discussed plan with the pt. We will admit to observation status and continue the procardia through the morning while maintaining her hydration. If her contractions continue with no cervical change, there is the possibility that we would discharge her home later tonight. If she starts to change her cervix and proceed into labor, of course shoe would be admitted inpatient to the hospital. Her GBS status is negative. She did get a course of celestone on July 18. -continue to monitor closely.
--- NOTE | 2016-08-19 17:12 | OB.PROGRES ---
Date and Time of Service: 08/08/16 @ 184 Interval History: Pt has remained stable and without significant change in status all day. Her contractions remain about the same, strength-anne. Denies vag bleeding, no gushes of fluid. Baby is very active. Pt did get up and ambulate to help relieve low back discomfort related to being in bed. Objective - Cervical Exam Cervical Exam: /-2 per ZO [place] prior to discharge. [place]: occasional, irregular contractions. They palpate mild Heart Rate: 150, + accels, no decels noted. Heart Rate Interpretation Category: Category I - Vital Signs Last Taken Vital Signs: Vital Signs - Last Taken Temperature 97.8 F 08/08/16 06:45 Pulse Rate 55 L 08/08/16 10:01 Respiratory Rate 18 08/08/16 06:45 Blood Pressure 130/86 08/08/16 10:01 Pulse Ox 98 08/08/16 06:45 Assessment and Plan - Patient Problems (1) contractions Status: Acute - Assessment / Plan Additional Assessment/Plan Details: -will discharge home as pt has had no cervical change in the past several days. -GBS negative. -s/p course of celestone on July 18. -d/c home with strict labor precautions. Discharge Note: 1. Admitting dx: contractions. 2. Discharge dx: contractions. 3. Outcome: no cervical change. Received IV hydration and several doses of procardia with no change in the strength or frequency of her contractions. 4. Diet: regular. 5. Disposition: home 6. f/u: as scheduled in the office. Pt also received strict labor precautions prior to discharge.
== END 2016-08-08 18:30 | disposition home or self-care (01) ==
LOC: OBOP 00:03 → OBIP 08:32 → UNDOADMOB 08:32
PROVIDERS: ADMIT Family Medicine; ATTEND Family Medicine
DX: O60.03 Preterm labor without delivery, third trimester (principal); Z3A.36 36 weeks gestation of pregnancy
CPT/HCPCS: 81001; 81003; 96361; 96374; 96375; J2405; J7030; J7120

== ENCOUNTER 2016-08-10 07:30 | Outpatient (CLI) | payer BC ==
[2016-08-10] MEDS ORDERED: NORMAL SALINE 10 ML SYRINGE FLUSH IVP PRN (07:37)
[2016-08-10 07:43] VITALS: RESP 16; TEMP 97.5
--- NOTE | 2016-08-18 19:45 | PDOC(PROG) ---
Intake - - Reason for Visit/Chief Complaint: Contractions Admitted From: Home - LMP: 11/27/15 Estimated Due Date: 09/02/16 Gestational Age in Weeks and Days: 37 Weeks and 6 Days : 1 Para: 0 - Labs Blood Type and Rh: O+ Maternal - Vital Signs Last Taken Vital Signs: Vital Signs - Last Taken Temperature 97.5 F 08/10/16 07:36 Pulse Rate 57 L 08/10/16 07:36 Respiratory Rate 16 08/10/16 07:36 Blood Pressure 132/76 08/10/16 07:36 Pulse Ox 100 08/10/16 07:36 - Uterine Activity Uterine Contraction Monitor Mode: External Contraction Frequency(minutes): 1-2 Contraction Duration (seconds): 40-60 Uterine Contraction Pattern: Regular Uterine Tone Measurement Phase: soft Uterine Contraction Intensity: Moderate - Cervical Exam Cervical Dilation (cm): 1-2 Cervical Effacement Percentage: 50 Station: -2 Exam Performed By: Tuckerer - Vaginal Discharge Vaginal Bleeding Amount: Spotting Vaginal Bleeding Description: Bright Red Vaginal Discharge Amount: None Monitoring - Uterine Activity Uterine Contraction Monitor Mode: External Contraction Frequency(minutes): 1-2 Contraction Duration (seconds): 40-60 Uterine Contraction Pattern: Regular Uterine Tone Measurement Phase: soft Uterine Contraction Intensity: Moderate Results - Bedside Testing Bedside Urine Ketone: Negative Bedside Urine Leukocytes Esterase: Small Bedside Urine Nitrite: Negative Bedside Urine Occult Blood: Negative Bedside Urine Protein: Negative Bedside Specific Aurelia: 1.025 Assessment and Plan - Patient Problems (1) False labor before 37 completed weeks of gestation Status: Acute - Assessment / Plan Additional Assessment/Plan Details: -no cervical change since last visit to labor and delivery. -labor precautions. -f/u: as scheduled in clinic.
== END 2016-08-10 09:48 | disposition home or self-care (01) ==
LOC: OBOP 07:30
PROVIDERS: ATTEND Family Medicine
DX: O47.03 False labor before 37 completed weeks of gestation, third trimester (principal); Z3A.36 36 weeks gestation of pregnancy
CPT/HCPCS: 59025; 81003; 99211

== ENCOUNTER 2016-08-12 23:30 | Inpatient (IN) | payer BC ==
[2016-08-12] MEDS ORDERED: NORMAL SALINE 10 ML SYRINGE FLUSH IVP PRN (23:36)
[2016-08-13] MEDS ORDERED: CALCIUM CARBONATE 500 MG (TUMS) CHEWABLE TABLET PO PRN ×2 (00:33→18:52)
[2016-08-13] MEDS ORDERED: NORMAL SALINE 10 ML SYRINGE FLUSH IVP PRN ×2 (00:33→18:52)
[2016-08-13] MEDS ORDERED: CITRIC ACID/SODIUM CITRATE 30 ML CUP PO PRN (00:33)
[2016-08-13] MEDS ORDERED: BUTORPHANOL TARTRATE 2 MG/1 ML VIAL IVP PRN (00:33)
[2016-08-13] MEDS ORDERED: ONDANSETRON 4 MG/2 ML VIAL IVP PRN ×2 (00:33→18:52)
[2016-08-13] MEDS ORDERED: ePHEDrine Inj 5 MG in Normal Saline Flush 1 ML IVP PRN (00:33)
[2016-08-13] MEDS ORDERED: MISOPROSTOL 200 MCG TABLET RECTAL PRN (00:33)
[2016-08-13] MEDS ORDERED: Metoclopramide Inj 10 MG/2 ML VIAL IV PRN (00:33)
[2016-08-13] MEDS ORDERED: Famotidine Inj 20 MG in Normal Saline Flush 10 ML IVP PRN ×4 (00:33)
[2016-08-13] MEDS ORDERED: NALOXONE 0.4 MG/1 ML VIAL IVP PRN (00:33)
[2016-08-13] MEDS ORDERED: Phenylephrine Inj 50 MCG in Normal Saline Flush 0.5 ML IVP PRN (00:33)
[2016-08-13] MEDS ORDERED: Naloxone Inj 0.01 MG in Normal Saline Flush 1 ML IVP PRN (00:33)
[2016-08-13] MEDS ORDERED: METHYLERGONOVINE MALEATE 0.2 MG/1 ML VIAL IM PRN ×2 (00:33→18:52)
[2016-08-13] MEDS ORDERED: OXYTOCIN 10 UNIT/1 ML IM PRN (00:33)
[2016-08-13] MEDS ORDERED: TERBUTALINE SULFATE 1 MG/1 ML SDV SUBCUT PRN (00:33)
[2016-08-13] MEDS ORDERED: Nalbuphine Inj 20 MG/ML Ampule IVP PRN ×2 (00:33→18:52)
[2016-08-13] MEDS ORDERED: CefOXitin Inj 2 GM in Sodium Chloride 0.9% 100 ML IV PRN (00:33)
[2016-08-13] MEDS ORDERED: diphenhydrAMINE 50 MG/1 ML VIAL IVP PRN ×2 (00:33→18:52)
[2016-08-13] MEDS ORDERED: LIDOCAINE W/ SODIUM BICARB 0.5 ML SYR SUBD PRN (00:33)
[2016-08-13] MEDS ORDERED: Carboprost Inj 250 MCG/ML AMP IM PRN ×2 (00:33→18:52)
[2016-08-13] MEDS ORDERED: Lidocaine 1% 10 MG/ML - 20 ML VIAL SUBCUT PRN (00:33)
[2016-08-13] MEDS ORDERED: Oxytocin 20 Units + LR 1,000 ML IV SCH ×3 (00:45→18:52)
[2016-08-13 01:13] LABS: HEMATOCRIT 34.7 % (37.0-47.0); HEMOGLOBIN 11.6 g/dL (12.0-16.0); MEAN CORPUSCULAR HEMOGLOBIN 30.4 PG (27-31); MEAN CORPUSCULAR HGB CONC 33.4 g/dL (33-37); MEAN CORPUSCULAR VOLUME 90.8 FL (81-99); MEAN PLATELET VOLUME 11.3 FL (7.4-12.2); RED BLOOD COUNT 3.82 10^6/uL (4.20-5.40)
[2016-08-13] MEDS: Lactated Ringers-OB Dept 1,000 ML PRIMARY IV SCH ×3 (01:45→04:12)
[2016-08-13] MEDS ORDERED: Lactated Ringers 1,000 ML PRIMARY IV ONE (01:46)
[2016-08-13] MEDS: fentaNYL Inj 100 MCG/2 ML VIAL IV PRN ×2 (04:11→17:39)
[2016-08-13] MEDS ORDERED: Fent/Bupiv 2mcg/0.0625% Epid 250 ML ONE (05:18)
[2016-08-13] MEDS ORDERED: fentaNYL 2 MCG/BUPIVACAINE 0.0625%/NS 0.9% 250 ML BAG EPIDURAL ONE (05:37)
--- NOTE | 2016-08-13 05:46 | CRNA.PROCE ---
Central Neuraxis Block Placemt - - Safety Measures: Site Verified - - Type of Block: Epidural Reason for Block: Analgesia Moniters Used During Block: SPO2, NIBP Positioning: Sitting Skin Prep Used: Betadine (times 3) Draped: Yes Skin Infiltration - Enter Amount Used in Comment Field: 1% Xylocaine (mL): Yes ( 1.5) Introducer User: None Spinal Needle Used: 18 Hustead 80 mm Local Anesthetic - Enter Amount Used in Comment Field: 1.5 % Xylocaine with Epinephrine 1:200,000 (mL): Yes (4.0 ) Number of Centimeters Catheter Threaded: 4.0 Bioclusive Dressing Applied: Yes - - Additional Details: E-Natals reviewed. Laboratory Results 08/12/16 08/13/16 Range/Units 23:37 00:33 WBC 11.75 H (4.8-10.8) 10^3/uL RBC 3.82 L (4.20-5.40) 10^6/uL Hgb 11.6 L (12.0-16.0) g/dL Hct 34.7 L (37.0-47.0) % MCV 90.8 (81-99) FL MCH 30.4 (27-31) PG MCHC 33.4 (33-37) g/dL RDW Std Deviation 45.2 (39-50) fL RDW Coeff of Alicia 14.1 (11.5-14.5) % Plt Count 211 (140-350) 10*3/uL MPV 11.3 (7.4-12.2) FL Amnio Fld Other Info Positive (NEGATIVE) Pt reported warm legs/buttocks equally right/left. Placed on infusion. See orders. Michelle Perez MS, GEODESIST
[2016-08-13] MEDS ORDERED: Ampicillin Inj 1 GM in Sodium Chloride 0.9% 100 ML IV SCH (11:30)
--- NOTE | 2016-08-13 13:20 | OB.PROGRES ---
Date and Time of Service: 08/13/16 @ 1045 Interval History: Pt is a 21 yo G1 at 37 1/7 weeks by early u/s who presented to labor and delivery last noc with the complaint of leakage of fluid since 2 days prior. Fluid noted to be clear. She had not been kiley any more painfully or frequently than normal. Denies any vaginal bleeding. Baby has been moving normally. After admission last noc, she had further spontaneous rupture of membranes. Her contractions were augmented with pitocin starting this morning. She had an epidural placed for pain control, is now currently comfortable. Objective - Cervical Exam Cervical Exam: / per [facility] [place]: every 2-3 minutes, palpating mild to moderate Heart Rate: 130-140, currently minimal to moderate variability. Heart Rate Interpretation Category: Category II - Labs CBC and BMP: 08/13/16 00:33 Labs - Last 24 Hours: Laboratory Results 08/12/16 08/13/16 Range/Units 23:37 00:33 WBC 11.75 H (4.8-10.8) 10^3/uL RBC 3.82 L (4.20-5.40) 10^6/uL Hgb 11.6 L (12.0-16.0) g/dL Hct 34.7 L (37.0-47.0) % MCV 90.8 (81-99) FL MCH 30.4 (27-31) PG MCHC 33.4 (33-37) g/dL RDW Std Deviation 45.2 (39-50) fL RDW Coeff of Alicia 14.1 (11.5-14.5) % Plt Count 211 (140-350) 10*3/uL MPV 11.3 (7.4-12.2) FL Amnio Fld Other Info Positive (NEGATIVE) - Vital Signs Last Taken Vital Signs: Vital Signs - Last Taken Temperature 97.6 F 08/13/16 10:30 Pulse Rate 58 L 08/13/16 11:45 Respiratory Rate 16 08/13/16 12:45 Blood Pressure 121/78 08/13/16 11:45 Pulse Ox 98 08/13/16 11:45 Assessment and Plan - Patient Problems (1) PROM (premature rupture of membranes) Current Visit: Yes Status: Acute Qualifiers: PROM onset of labor timing: unspecified duration between rupture of membranes and onset of labor PROM gestational age: full term Qualified Description: Full-term premature rupture of membranes, unspecified duration to onset of labor Qualifier Code(s): (O42.92) Full-term premature rupture of membranes, unspecified as to length of time between rupture and onset of labor - Assessment / Plan Additional Assessment/Plan Details: -GBS negative. -pt has been afebrile throughout her stay here. Will continue to monitor closely for chorioamnionitis. Consider antibiotic prophylaxis if she doesn't get into active labor soon. -currently comfortable with her epidural. -IUPC placed earlier this morning to more closely document her contractions. -continue to follow closely.
[2016-08-13] MEDS ORDERED: Ondansetron ODT Tab 4 MG TAB PO PRN (18:52)
[2016-08-13] MEDS ORDERED: MISOPROSTOL 200 MCG TABLET RECTAL ONE (18:52)
[2016-08-13] MEDS ORDERED: OXYTOCIN 10 UNIT/1 ML IM ONE (18:52)
[2016-08-13] MEDS ORDERED: HYDROcodone-APAP 5 MG -325 MG TABLET PO PRN (18:52)
[2016-08-13] MEDS ORDERED: DIPH,PERTUSS,TET(ADACEL) VAC/PF 0.5 ML (Tdap) IM SCH (18:52)
[2016-08-13] MEDS ORDERED: LANOLIN HPA 40 GM TUBE TOPICAL PRN (18:52)
[2016-08-13] MEDS ORDERED: ACETAMINOPHEN 325 MG TABLET PO PRN (18:52)
[2016-08-13] MEDS ORDERED: diphenhydrAMINE 25 MG CAPSULE PO PRN (18:52)
[2016-08-13] MEDS ORDERED: Methylergonovine Tab 0.2 MG TAB PO PRN (18:52)
[2016-08-13] MEDS ORDERED: BENZOCAINE/MENTHOL SPRAY 56 GM BOTTLE TOPICAL PRN (18:52)
[2016-08-13] MEDS ORDERED: GLYCERIN/WITCH HAZEL 1 BOX TOPICAL PRN (18:52)
--- NOTE | 2016-08-13 19:06 | OB.DEL.SUM ---
Delivery Note Delivery Summary: Pt is a 21 yo G1 now P1 at 37 1/7 weeks by first trimester u/s who presented last noc with leakage of fluid that started about 48 hours prior. Fluid was described as clear. When she presented yesterday, she was having irregular contractions. Pitocin augmentation was started this morning after an epidural was placed for pain control. She progressed slowly through the day and was 4/90/ -1 for at least 5 hours. Because of hyperstimulation of her uterus, the pitocin was shut off at 1400 and the pt was allowed to labor on her own. She was 6 cm a short time later and then complete within another hour. She pushed for 35 minutes to the delivery of a viable female over an intact perineum at 1720. The baby's nose and mouth were suctioned with a bulb suction and the cord was doubly clamped by myself. The cord was cut by the father of the baby. Baby was handed to the waiting nurse. Cord blood and cord gases were obtained for analysis. The placenta delivered spontaneously and intact with a 3 vessel cord at 1728. 20 mU of pitocin were infused. The uterus did have moderate atony, which was treated first with methergine and then with rectal cytotec. Hemostasis was then improved. The vagina and perineum were examined and no lacerations were noted. Apgars were 6 at 1 minute and 7 at 5 minutes. Baby weighed 5#9oz and was 18 1/4 inches long. Both mom and baby tolerated delivery well and are in stable condition at this time. EBL 350cc. - Patient Problems (1) PROM (premature rupture of membranes) Current Visit: Yes Status: Acute Qualifiers: PROM onset of labor timing: unspecified duration between rupture of membranes and onset of labor PROM gestational age: full term Qualified Description: Full-term premature rupture of membranes, unspecified duration to onset of labor Qualifier Code(s): (O42.92) Full-term premature rupture of membranes, unspecified as to length of time between rupture and onset of labor
[2016-08-13] MEDS: DOCUSATE 100 MG CAPSULE PO SCH (22:11)
[2016-08-13] MEDS: IBUPROFEN 800 MG TABLET PO PRN (22:12)
[2016-08-14] MEDS: Lactated Ringers-OB Dept 1,000 ML PRIMARY IV SCH (04:42)
[2016-08-14] MEDS ORDERED: Prenatal Multivitamin Tab 1 TAB TAB PO SCH (09:00)
[2016-08-14] MEDS ORDERED: Ertapenem Inj 1 GM in Sodium Chloride 0.9% 100 ML IV ONE (09:09)
[2016-08-14 09:27] VITALS: RESP 18; TEMP 98
[2016-08-14] MEDS: IBUPROFEN 800 MG TABLET PO PRN (09:49)
[2016-08-14] MEDS: DOCUSATE 100 MG CAPSULE PO SCH (09:49)
[2016-08-14 10:18] LABS: HEMATOCRIT 32.4 % (37.0-47.0); HEMOGLOBIN 10.8 g/dL (12.0-16.0); MEAN CORPUSCULAR HEMOGLOBIN 30.7 PG (27-31); MEAN CORPUSCULAR HGB CONC 33.3 g/dL (33-37); MEAN PLATELET VOLUME 10.8 FL (7.4-12.2); RED BLOOD COUNT 3.52 10^6/uL (4.20-5.40)
--- NOTE | 2016-08-14 11:25 | OB.PROGRES ---
Subjective Post Day: 1 Pain Management: PO Roberts Catheter: No Flatus: Yes Diet: Regular Feeding Method: Exculsively Ambulating: Yes Concerns / Additional Information: Feeling better after getting some rest last noc. Baby was transferred to [facility] NICU secondary to possible sepsis. Pt is having some low back pain this morning. Bleeding slowing down to just mild lochia. Is pumping her colostrum. Objective - General General Appearance: POSITIVE: No Acute Distress, Cooperative - Cardiovacular Cardiovascular Exam: POSITIVE: RRR, No Murmur Edema: +1 Pedal Edema Extremities: Negative Abigail's - Bilaterally - Respiratory Respiratory Exam: POSITIVE: Clear to Auscultation - Bilaterally, Breathing Non Labored - Abdomen Bowel Sounds: Present Assesstment / Plan (1) PROM (premature rupture of membranes) Current Visit: Yes Status: Acute Qualifiers: PROM onset of labor timing: unspecified duration between rupture of membranes and onset of labor PROM gestational age: full term Qualified Description: Full-term premature rupture of membranes, unspecified duration to onset of labor Qualifier Code(s): (O42.92) Full-term premature rupture of membranes, unspecified as to length of time between rupture and onset of labor Assessment / Plan: -routine cares. -with possible sepsis of the baby, will give mom 1 dose of Invanz this morning prior to discharge. -O+ blood type -rubella immune. -breast feeding. -will d/c prior to the 24 hour thiago so the baby can travel to [place] to be with her .
== END 2016-08-14 11:38 | disposition home or self-care (01) | DRG 775 ==
LOC: OBOP 23:30 → OBIP 08-13 00:33
PROVIDERS: ADMIT Family Medicine; ATTEND Family Medicine
PROC: 10E0XZZ Delivery of Products of Conception, External Approach (ICD-10-PCS; principal; 2016-08-13)
DX: O60.14X0 Preterm labor third trimester with preterm delivery third trimester, not applicable or unspecified (principal); Z3A.37 37 weeks gestation of pregnancy; Z37.0 Single live birth
CPT/HCPCS: 36415; 81003; 84112; 85027; J1335; J2210; J2405; J3010; J3490; J7050; J7120

== ENCOUNTER 2016-10-11 00:20 | Emergency (ER) | payer BC, OTHER ==
[2016-10-11] MEDS ORDERED: Famotidine Inj 20 MG in Normal Saline Flush 10 ML IVP ONE (00:31)
[2016-10-11] MEDS ORDERED: ONDANSETRON 4 MG/2 ML VIAL IVP ONE (00:31)
[2016-10-11] MEDS ORDERED: Sodium Chloride 0.9% 1,000 ML PRIMARY IV ONE (00:31)
[2016-10-11] MEDS ORDERED: NORMAL SALINE 10 ML SYRINGE FLUSH IVP PRN (00:31)
[2016-10-11 00:54] LABS: BASOPHILS # (AUTO) 0.08 10*3/UL; BASOPHILS % (AUTO) 1.3 % (0-1); EOSINOPHILS # (AUTO) 0.27 10*3/UL; EOSINOPHILS % (AUTO) 4.3 % (0-8); HEMATOCRIT 33.9 % (37.0-47.0); HEMOGLOBIN 11.4 g/dL (12.0-16.0); LYMPHOCYTES # (AUTO) 1.74 10*3/uL; MEAN CORPUSCULAR HEMOGLOBIN 29.3 PG (27-31); MEAN CORPUSCULAR HGB CONC 33.6 g/dL (33-37); MEAN CORPUSCULAR VOLUME 87.1 FL (81-99); MEAN PLATELET VOLUME 9.7 FL (7.4-12.2); MONOCYTES # (AUTO) 0.63 10*3/UL (0.3-0.8); NEUTROPHILS # (AUTO) 3.59 10*3/UL; NEUTROPHILS % (AUTO) 56.7 % (50-80); RED BLOOD COUNT 3.89 10^6/uL (4.20-5.40)
[2016-10-11] MEDS ORDERED: Sodium Chloride 0.9% 1,000 ML ONE (00:55)
[2016-10-11 01:05] LABS: PLATELET MORPHOLOGY COMMENT NORMAL MORPHOLOGY (NORM); RBC MORPHOLOGY COMMENT NORMAL MORPHOLOGY (NORM); WBC MORPHOLOGY COMMENT NORMAL MORPHOLOGY (NORM)
[2016-10-11 01:10] LABS: BLOOD UREA NITROGEN 14 mg/dL (7-22); BUN/CREATININE RATIO 15.55 (6-20); CALCIUM 9.5 mg/dL (8.7-10.7); EST GLOMERULAR FILTRATION > 60 (>60 ml/min/1.73m(2)); LIPASE 53 IU/L (23-300); SERUM ALBUMIN 4.2 g/dL (3.5-4.8)
[2016-10-11 01:28] VITALS: RESP 18
--- NOTE | 2016-10-11 02:30 | DI ---
HISTORY: Right upper quadrant abdominal pain. COMPARISON: None available. TECHNIQUE: Sonographic images of the right upper quadrant were obtained and the images were submitte d for interpretation. FINDINGS: The gallbladder is normal in caliber and wall thickness without evidence of stone or sludg e. There is no evidence of biliary ductal dilatation, including the common bile duct. The liver is grossly unremarkable. Survey images of the right kidney demonstrate no gross abnormality. IMPRESSION: 1. Unremarkable gallbladder on the images provided. No biliary duct dilatation. NOTE: The interpreting Radiologist was not present at the time of ultrasound interrogation.
[2016-10-11 02:37] LABS: BILIRUBIN,URINE MODERATE (NEG); CLARITY,URINE CLOUDY (CLEAR); COLOR,URINE BROWN; GLUCOSE, URINE (UA) NEGATIVE (NEG); NITRATE,URINE NEGATIVE (NEG); OCCULT BLOOD,URINE LARGE (NEG); PH,URINE 5.5 (5.0-8.5); PROTEIN,URINE 100 mg/dl (NEG)
[2016-10-11 02:46] LABS: BACTERIA,URINE RARE; RBC,URINE >100 /hpf; RENAL EPITHELIAL CELLS,URINE RARE; SQUAMOUS EPITHELIAL CELL,UR MANY; URINE SAMPLE TYPE CLEAN CATCH URINE; WBC,URINE RARE
[2016-10-11 02:57] VITALS: TEMP 98.3
--- NOTE | 2016-10-11 04:14 | PDOC ---
Abdomen/Flank HPI - General Chief Complaint: Neck / Back Complaint Stated Complaint: pain right subcostal area Date Seen by Provider: 10/11/16 Time Seen by Provider: 00:17 Source: POSITIVE: Patient Exam Limitations: POSITIVE: No limitations Nurse's Notes Reviewed & Considered: Yes - History of Present Illness Initial Comments: The patient is a 21-year-old female. She presents to the emergency room with a chief complaint of right subcostal discomfort. 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 She had some associated nausea and states she vomited twice prior to coming to the emergency room. No diarrhea. No fevers or chills. No melena, hematochezia, hematemesis , diarrhea, or urinary symptoms. She is 1 para 1 and states she gave about 2 months ago. She is on Depo-Provera injections for control. Body Location Affected: REPORTS: Chest (Right subcostal area), Abdomen (Right upper abdominal area) Timing: REPORTS: Abrupt Duration: 1-3 hours Severity: Moderate Quality: REPORTS: "Pain" Abdominal Pain Onset Location: REPORTS: RUQ Abdominal Pain Radiation: REPORTS: No radiation Context: REPORTS: None Modifying Factors: improves with: Nothing Associated Symptoms: REPORTS: Nausea, Vomiting. DENIES: Denies symptoms, Back pain, Bloody Emesis, Chest pain, Coffee Grounds Emesis, Chills, Diaphoresis, Fever, Fatigue, Headache, Heartburn, Loss of Appetite, Rash, Shortness of breath , Swelling/mass in abdomen, Syncope, Testicular Pain, Weakness, Grossly Bloody Diarrhea, Constipation, Diarrhea, Dysuria, Incontinent Stool, Incontinent Urine , Mucous Diarrhea, Difficulty Walking, Dizziness, Light Headedness, Numbness, Other Similar Symptoms Previously: No Recent Care Received: REPORTS: Denies Any Prior Injuries Related to Current Complaint?: No - Patient Home Medications Home Medications: Home Medications Escitalopram Oxalate [Lexapro] 1 tab PO QD #30 tab 04/17/16 Medroxyprogesterone Acetate [Depo-Provera] 400 mg IM DAILY 10/11/16 - Patient Allergies Allergies/Adverse Reactions: Allergies Allergy/AdvReac Type Severity Reaction Status Date / Time tomato Allergy DIFFICULTY Verified 10/11/16 01:19 SWALLOWING Past Medical History - heen HEENT History: Denies History Cardiovascular History: Denies History Respiratory History: Denies History Gastrointestinal History: Other (please comment) Additional Gastrointestinal History: heartburn Genitourinary History: Denies History Endocrine History: Denies History Musculoskeletal History: Denies History Prosthesis or Implant: No Neurological History: Denies History Blood Disorders: Denies History Psychiatric History: Depression, Anxiety Disorders Additional Psychiatric History: DIFFICULTY SLEEPING History of Sexually Transmitted Diseases: No Female Reproductive History: Denies History Obstetrical History: Denies History Cancer History: Denies History In Past Year Been Physically Harmed or Verbally Threatened: No History of MDRO: No History of Other Communicable Diseases: No Tobacco Use: Current Every Day Smoker Alcohol Use: None Substance Use Type: None Previous Surgical History: Yes Type / Date of Surgery: BILATERAL EUSTACHIAN TUBES, MULTIPLE DENTAL SURGERIES A CHILD Anesthesia Reactions: No Malignant Hyperthermia: No Significant Family History: No pertinent family hx Past Medical History Reviewed: Reviewed - No Changes ROS - Limitations ROS Limitations: No Limitations Constitution: REPORTS: Denies Symptoms Cardiovascular: REPORTS: Denies Cardiac Symptoms Respiratory: REPORTS: Denies Resp Symptoms Neurological: REPORTS: Denies Neuro Symptoms Gastrointestinal: REPORTS: Abdominal Pain, Nausea, Vomitting Endocrine: REPORTS: Denies Symptoms Musculoskeletal: REPORTS: Denies MS Symptoms Genitourinary: REPORTS: Denies Symptoms Eyes: REPORTS: Denies Symptoms ENT: REPORTS: Denies Symptoms Skin: REPORTS: Denies Skin Symptoms Lympathic: REPORTS: Denies Lympathic Symptoms Immunologic: POSITIVE: Denies Symptoms Psychiatric: POSITIVE: Denies Psych Symptoms Abdominal/Flank Pain PE - General Appearance General Appearance: POSITIVE: Alert, Cooperative, No Acute Distress, No Evidence of Trauma - HEENT HEENT: POSITIVE: Head Inspection Nml, Eyes Inspection Nml, Ears Inspection Nml, Nose Inspection Nml, Oral/Dental Inspect. Nml, Pharynx Inspect. Nml, PERRL, EOMI - Neck Neck: POSITIVE: Normal Inspection, No Apparent Injury - Respiratory Respiratory: POSITIVE: No Respiratory Distress, Breath Sounds Normal, Chest Non- Tender - Cardiovascular Cardiovascular: POSITIVE: Regular Rate and Rhythm, Heart Sounds Normal, Equal Pulses, Strong Pulses Peripheral Pulses: Radial (R): 2+, Radial (L): 2+ - Chest Chest: POSITIVE: Non Tender - Abdomen Abdomen: Soft: (All Quadrants), Normal Bowel Sounds: (All Quadrants), Denies Tenderness: (LLQ), (LUQ), (RUQ), No Splenomegaly: (All Quadrants), No Hepatomegaly: (All Quadrants), No Guarding: (All Quadrants), No Rebound: (All Quadrants), No Palpable Pulse: (All Quadrants), No Palpabale Mass: (All Quadrants), No Distention: (All Quadrants), No Rigidity: (All Quadrants), (RLQ) Additional Abdominal Details: Abdominal examination shows bowel sounds to be active. There is some discomfort expressed on direct palpation over the right upper quadrant and right subcostal area. No masses, organomegaly or rebound. 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 Chest x-ray normal. Lab Results Reviewed: Yes (all normal) Lab Results:: Laboratory Results 10/11/16 10/11/16 Range/Units 00:40 02:33 WBC 6.32 (4.8-10.8) 10^3/uL RBC 3.89 L (4.20-5.40) 10^6/uL Hgb 11.4 L (12.0-16.0) g/dL Hct 33.9 L (37.0-47.0) % MCV 87.1 (81-99) FL MCH 29.3 (27-31) PG MCHC 33.6 (33-37) g/dL RDW Std Deviation 39.2 (39-50) fL RDW Coeff of Alicia 12.7 (11.5-14.5) % Plt Count 302 (140-350) 10*3/uL MPV 9.7 (7.4-12.2) FL Immature Gran % (Auto) 0.2 (0-5) % Neut % (Auto) 56.7 (50-80) % Lymph % (Auto) 27.5 (10-50) % Terry % (Auto) 10.0 (5-15) % Eos % (Auto) 4.3 (0-8) % Baso % (Auto) 1.3 H (0-1) % Immature Gran # (Auto) 0.01 10*3/UL Neut # (Auto) 3.59 10*3/UL Lymph # (Auto) 1.74 10*3/uL Terry # (Auto) 0.63 (0.3-0.8) 10*3/UL Eos # (Auto) 0.27 10*3/UL Baso # (Auto) 0.08 10*3/UL WBC Morphology Comment Normal morphology (NORM) Plt Morphology Comment Normal morphology (NORM) RBC Morph Comment Normal morphology (NORM) D-Dimer < 0.19 (0.00-0.59) mg/L Sodium 140 (135-145) meq/L Potassium 3.5 L (3.8-5.2) meq/L Chloride 108 (98-112) meq/L Carbon Dioxide 21 L (23-33) meq/L Anion Gap 11 (5-20) BUN 14 (7-22) mg/dL Creatinine 0.9 (0.50-1.20) mg/dL Estimated GFR > 60 (>60 ml/min/1.73m(2)) BUN/Creatinine Ratio 15.55 (6-20) Glucose 82 (78-110) mg/dL Calculated Osmolality 289.0 (267-292) mOsm/kg Calcium 9.5 (8.7-10.7) mg/dL Total Bilirubin 0.9 (0.3-1.2) mg/dL AST 22 (8-39) IU/L ALT 20 (9-52) IU/L Alkaline Phosphatase 63 (38-126) IU/L Total Protein 7.0 (6.1-8.0) g/dL Albumin 4.2 (3.5-4.8) g/dL Globulin 2.8 (2.50-4.10) g/dL Albumin/Globulin Ratio 1.50 (1.3-2.0) mg/g Amylase 49 (30-110) U/L Lipase 53 (23-300) IU/L Serum HCG, Qual Negative Ur Collection Type Clean catch urine Urine Color Brown Urine Clarity Cloudy (CLEAR) Urine pH 5.5 (5.0-8.5) Ur Specific [place] 1.025 (1.005-1.030) Urine Protein 100 (NEG) mg/dl Urine Glucose (UA) Negative (NEG) mg/dL Urine Ketones 15 (NEG) Urine Occult Blood Large H (NEG) Urine Nitrate Negative (NEG) Urine Bilirubin Moderate (NEG) Urine Urobilinogen 1.0 (0.2) EU/dL Ur Leukocyte Esterase Negative (NEG) Urine RBC >100 (NONE) /hpf Urine WBC Rare (NONE) Ur Squamous Epith Cells Many (NONE) Ur Renal Epithelial Cell Rare (NONE) Urine Crystals None Urine Bacteria Rare (NONE) Urine Casts None (NONE) Urine Mucus Many (NONE) Urine Trichomonas None (NONE) Urine Yeast None (NONE) Ur Culture Indicated? Culture not set - Patient's Progress Pain Medication Addressed: POSITIVE: Not Applicable School/Work Release Addressed: POSITIVE: Not Applicable Re-examine Time: 02:37 Re-Examine Comment: Patient sleeping and comfortable on discharge. No further vomiting. Status: POSITIVE: Improved, Re-Examined - Consult Counseled: POSITIVE: Patient, Family, RE: Lab Results, RE: Radiology Results, RE : DX, RE: Need for F/U Patient Care Time - Estimated PCT Patient Care Time (In Minutes): 50 Vital Signs - Recent Vital Signs Vital Signs: Vital Signs (Last 8 hours) Temp Pulse Resp BP Pulse Ox 10/11/16 02:52 98.3 F 68 18 106/61 97 10/11/16 00:20 68 18 106/61 97 - VS Reviewed Vital Signs Reviewed: Yes Discharge Clinical Impression: Abdominal pain Discharge Disposition: Discharged to Home Condition: Stable Patient Instructions Given at Discharge: Abdominal Pain (ED) Additional Instructions: I am not completely sure why you're having discomfort below your right ribs in the upper right portion of the abdomen. Her abdominal ultrasound for gallstones was normal. Your blood and urine tests are normal. Your chest x- ray is normal, as is a screening test for blood clots in the lung. I do not see any evidence of any serious chest or abdominal problems ongoing. Please observe a clear liquid diet for 12 hours. If symptoms continue and are not severe, follow-up with your primary care provider. Please return here anytime if condition worsens in any way whatsoever. Follow Up With: JOSH PENALOZA [Primary Care Provider] - (Instructions as above. Follow-up with your primary care provider. Return here anytime if condition worsens in any way whatsoever.)
--- NOTE | 2016-10-11 09:17 | DI ---
History: Right subcostal pain comparison: Chest x-ray performed on December 16, 2014 Findings: Lungs fully expanded and clear. No infiltrate or effusion. No pneumothorax Heart size normal Pulmonary vasculature normal. No gross osseous abnormalities. No changes from 2015. Impression: Unremarkable plain film study of the chest
== END 2016-10-11 02:49 | disposition home or self-care (01) ==
LOC: ER 00:20
DX: R10.11 Right upper quadrant pain (principal); R11.2 Nausea with vomiting, unspecified; R07.9 Chest pain, unspecified
CPT/HCPCS: 71020; 76705; 80053; 81001; 81003; 82150; 83690; 84703; 85025; 85379; 96361; 96374; 96375; 99283 ×2; J2405; S0028; J7030

== ENCOUNTER 2016-10-11 16:57 | Emergency (ER) | payer BC, OTHER ==
[2016-10-11] MEDS ORDERED: MORPHINE SULFATE 2 MG/1 ML IV ONE (17:12)
[2016-10-11] MEDS ORDERED: NORMAL SALINE 10 ML SYRINGE FLUSH IVP PRN (17:12)
[2016-10-11] MEDS ORDERED: ONDANSETRON 4 MG/2 ML VIAL IVP ONE (17:12)
[2016-10-11] MEDS ORDERED: Sodium Chloride 0.9% 1,000 ML PRIMARY IV ONE (17:12)
[2016-10-11 17:20] LABS: BASOPHILS # (AUTO) 0.06 10*3/UL; EOSINOPHILS # (AUTO) 0.29 10*3/UL; EOSINOPHILS % (AUTO) 4.9 % (0-8); HEMATOCRIT 34.2 % (37.0-47.0); HEMOGLOBIN 11.3 g/dL (12.0-16.0); LYMPHOCYTES # (AUTO) 1.74 10*3/uL; MEAN CORPUSCULAR VOLUME 87.9 FL (81-99); MEAN PLATELET VOLUME 10.2 FL (7.4-12.2); MONOCYTES # (AUTO) 0.52 10*3/UL (0.3-0.8); MONOCYTES % (AUTO) 8.8 % (5-15); NEUTROPHILS % (AUTO) 55.9 % (50-80); RED BLOOD COUNT 3.89 10^6/uL (4.20-5.40)
[2016-10-11 17:27] LABS: PLATELET MORPHOLOGY COMMENT NORMAL MORPHOLOGY (NORM); RBC MORPHOLOGY COMMENT NORMAL MORPHOLOGY (NORM); WBC MORPHOLOGY COMMENT NORMAL MORPHOLOGY (NORM)
[2016-10-11 17:29] VITALS: RESP 14; TEMP 98
[2016-10-11 17:39] LABS: BLOOD UREA NITROGEN 13 mg/dL (7-22); BUN/CREATININE RATIO 14.44 (6-20); CALCIUM 9.9 mg/dL (8.7-10.7); EST GLOMERULAR FILTRATION > 60 (>60 ml/min/1.73m(2)); LIPASE 86 IU/L (23-300); SERUM ALBUMIN 4.1 g/dL (3.5-4.8)
--- NOTE | 2016-10-11 18:10 | DI ---
CLINICAL HISTORY: Abdominal pain. PREVIOUS EXAM: None available. FINDINGS/TECHNIQUE: Multiple helically acquired CT images were obtained through the abdomen and pelvi s following the intravenous administration of contrast. The lung bases are clear. The liver is normal . The gallbladder is normal. The spleen, pancreas, adrenals and left kidney are within normal limits. There is a 3.3 mm stone with in the right mid ureter causing some moderate right hydroureter and mild right hydronephrosis. The appendix is normal. The urinary bladder is unremarkable. The uterus and ovaries are grossly kris l. Skeletal structures are unremarkable. IMPRESSION: 1. 3.3 mm stone within the right mid ureter causing moderate hydroureter and mild right hydronephrosi s.
--- NOTE | 2016-10-11 18:12 | PDOC ---
Abdomen/Flank HPI - General Chief Complaint: Abdomen Pain Stated Complaint: lower abd pain Date Seen by Provider: 10/11/16 Time Seen by Provider: 17:10 Source: POSITIVE: Patient Exam Limitations: POSITIVE: No limitations Nurse's Notes Reviewed & Considered: Yes - History of Present Illness Initial Comments: The patient is a 21-year-old female who presents to the emergency department with worsening right-sided abdominal pain. She states that she had onset of right sided upper abdominal pain yesterday. She was seen here in the emergency room last night. She had normal blood work as well as a normal chest x-ray and gallbladder ultrasound. She had a normal d-dimer. She states that today her pain has worsened. Her pain is now primarily located in the right lower quadrant. She has associated decrease in appetite and states she has not really eaten anything today. She denies any fevers or chills, urinary symptoms , change in bowel movements or any other associated complaints. She has had no prior abdominal surgeries. She is approximately 2 months . - Patient Home Medications Home Medications: Home Medications Escitalopram Oxalate [Lexapro] 1 tab PO QD #30 tab 04/17/16 Hydrocodone/Acetaminophen [[place] 5-325 Tablet] 1 each PO Q6H PRN #15 tablet Ketorolac Tromethamine [Toradol] 10 mg PO Q6H PRN #15 tablet 10/11/16 Medroxyprogesterone Acetate [Depo-Provera] 400 mg IM DAILY 10/11/16 Tamsulosin HCl [Flomax] 0.4 mg PO DAILY #7 cap 10/11/16 - Patient Allergies Allergies/Adverse Reactions: Allergies Allergy/AdvReac Type Severity Reaction Status Date / Time tomato Allergy DIFFICULTY Verified 10/11/16 17:09 SWALLOWING Past Medical History - heen HEENT History: Denies History Cardiovascular History: Denies History Respiratory History: Denies History Gastrointestinal History: Other (please comment) Additional Gastrointestinal History: SAYS SHE HAS AN "ISSUE WITH RED MEAT" BUT DOES OKAY LONG SHE DOES NOT EAT IT. Genitourinary History: Denies History Endocrine History: Denies History Musculoskeletal History: Denies History Prosthesis or Implant: No Neurological History: Denies History Blood Disorders: Denies History Psychiatric History: Depression, Anxiety Disorders Additional Psychiatric History: DIFFICULTY SLEEPING History of Sexually Transmitted Diseases: No Female Reproductive History: Ovarian Cyst Obstetrical History: Denies History Cancer History: Denies History In Past Year Been Physically Harmed or Verbally Threatened: No History of MDRO: No History of Other Communicable Diseases: No Tobacco Use: Current Every Day Smoker Alcohol Use: None Substance Use Type: None Previous Surgical History: Yes Type / Date of Surgery: BILATERAL EUSTACHIAN TUBES, MULTIPLE DENTAL SURGERIES A CHILD Anesthesia Reactions: No Malignant Hyperthermia: No Significant Family History: No pertinent family hx Past Medical History Reviewed: Reviewed - No Changes ROS - Limitations ROS Limitations: No Limitations Constitution: DENIES: Chills, Fever Cardiovascular: REPORTS: Denies Cardiac Symptoms Respiratory: REPORTS: Denies Resp Symptoms Neurological: REPORTS: Denies Neuro Symptoms Gastrointestinal: REPORTS: Abdominal Pain, Nausea. DENIES: Vomitting, Diarrhea Musculoskeletal: REPORTS: Denies MS Symptoms Genitourinary: REPORTS: Denies Symptoms Eyes: REPORTS: Denies Symptoms ENT: REPORTS: Denies Symptoms Skin: DENIES: Rash Abdominal/Flank Pain PE - General Appearance General Appearance: POSITIVE: Alert, Cooperative, No Acute Distress - HEENT HEENT: POSITIVE: Head Inspection Nml, Eyes Inspection Nml, Ears Inspection Nml, Dry Mucous Membranes - Neck Neck: POSITIVE: Normal Inspection - Respiratory Respiratory: POSITIVE: No Respiratory Distress, Breath Sounds Normal - Cardiovascular Cardiovascular: POSITIVE: Regular Rate and Rhythm, Heart Sounds Normal - Abdomen Abdomen: Soft: (All Quadrants) Additional Abdominal Details: Her abdomen is soft and flat, bowel sounds are present however they are hypoactive, she does have tenderness in the right lower quadrant with some localized rebound tenderness, she does have pain with heel tap as well in the right lower quadrant, she does have some mild right-sided CVA tenderness as well. - Skin Skin: POSITIVE: Intact, No Rash - Extremities Extremity: Normal ROM: (All Extremities), Normal Inspection: (All Extremities) - Neurological Neurological: POSITIVE: Oriented X3, Motor Normal, Sensation Normal Abdomen Progress - Results Reviewed by me Xrays/CTs/US Reviewed by me: Yes Discussed with Radiologist: Yes Radiology Findings: CT scan of the abdomen and pelvis with IV contrast reveals a 3 mm stone in the mid right ureter, no other acute findings per radiologist. Lab Results Reviewed: Yes Lab Results:: Laboratory Results 10/11/16 10/11/16 Range/Units 17:03 18:24 WBC 5.91 (4.8-10.8) 10^3/uL RBC 3.89 L (4.20-5.40) 10^6/uL Hgb 11.3 L (12.0-16.0) g/dL Hct 34.2 L (37.0-47.0) % MCV 87.9 (81-99) FL MCH 29.0 (27-31) PG MCHC 33.0 (33-37) g/dL RDW Std Deviation 39.8 (39-50) fL RDW Coeff of Alicia 12.8 (11.5-14.5) % Plt Count 320 (140-350) 10*3/uL MPV 10.2 (7.4-12.2) FL Immature Gran % (Auto) 0 (0-5) % Neut % (Auto) 55.9 (50-80) % Lymph % (Auto) 29.4 (10-50) % [place] % (Auto) 8.8 (5-15) % Eos % (Auto) 4.9 (0-8) % Baso % (Auto) 1.0 (0-1) % Immature Gran # (Auto) 0 10*3/UL Neut # (Auto) 3.30 10*3/UL Lymph # (Auto) 1.74 10*3/uL [place] # (Auto) 0.52 (0.3-0.8) 10*3/UL Eos # (Auto) 0.29 10*3/UL Baso # (Auto) 0.06 10*3/UL WBC Morphology Comment Normal morphology (NORM) Plt Morphology Comment Normal morphology (NORM) RBC Morph Comment Normal morphology (NORM) Sodium 141 (135-145) meq/L Potassium 4.0 (3.8-5.2) meq/L Chloride 109 (98-112) meq/L Carbon Dioxide 21 L (23-33) meq/L Anion Gap 11 (5-20) BUN 13 (7-22) mg/dL Creatinine 0.9 (0.50-1.20) mg/dL Estimated GFR > 60 (>60 ml/min/1.73m(2)) BUN/Creatinine Ratio 14.44 (6-20) Glucose 83 (78-110) mg/dL Calculated Osmolality 290.0 (267-292) mOsm/kg Calcium 9.9 (8.7-10.7) mg/dL Total Bilirubin 0.7 (0.3-1.2) mg/dL AST 31 (8-39) IU/L ALT 23 (9-52) IU/L Alkaline Phosphatase 73 (38-126) IU/L C-Reactive Protein 1.8 H (0.0-0.9) mg/dL Total Protein 7.1 (6.1-8.0) g/dL Albumin 4.1 (3.5-4.8) g/dL Globulin 2.9 (2.50-4.10) g/dL Albumin/Globulin Ratio 1.40 (1.3-2.0) mg/g Amylase 63 (30-110) U/L Lipase 86 (23-300) IU/L Serum HCG, Qual Negative Ur Collection Type Voided specimen Urine Color Red Urine Clarity Turbid (CLEAR) Urine pH 5.5 (5.0-8.5) Ur Specific [place] 1.020 (1.005-1.030) Urine Protein 100 (NEG) mg/dl Urine Glucose (UA) Negative (NEG) mg/dL Urine Ketones Trace (NEG) Urine Occult Blood Large H (NEG) Urine Nitrate Negative (NEG) Urine Bilirubin Small (NEG) Urine Urobilinogen 1.0 (0.2) EU/dL Ur Leukocyte Esterase Negative (NEG) Urine RBC >100 (NONE) /hpf Urine WBC None (NONE) Ur Squamous Epith Cells Rare (NONE) Ur Renal Epithelial Cell None (NONE) Urine Crystals None Urine Bacteria None (NONE) Urine Casts None (NONE) Urine Mucus None (NONE) Urine Trichomonas None (NONE) Urine Yeast None (NONE) Ur Culture Indicated? Culture not set - Patient's Progress MDM / ED Course: The patient was rating her pain a 9 out of 10 on arrival. An IV was established and she received 2 mg of morphine as well as 4 mg of Zofran IV. Her pain improved from a 9 down to a 4 out of 10. After her CAT scan was done her pain started coming back up. CT scan shows a 3 mm stone in the right mid ureter which is the likely cause of her current pain. No other acute findings were noted and her white blood cell count is normal. She did receive Toradol 60 mg IM as her IV accidentally came out. Her pain improved significantly after administration of Toradol. She was also given Flomax 0.4 mg by mouth. She will be discharged home with advice to strain her urine. She was prescribed Toradol 10 mg every 6 hours as needed for pain as well as [place] 5/ 325 every 6 hours as needed for pain. She was also given Flomax 0.4 mg daily for 7 days. She is advised to push fluids. She will return to the emergency room if increased pain, vomiting or dehydration, fever, worsening or change in symptoms. She will follow-up with [facility] urology or primary care in 3- 5 days. - Consult Counseled: POSITIVE: Patient, Family, RE: Lab Results, RE: Radiology Results, RE : DX, RE: Need for F/U Patient Care Time - Estimated PCT Patient Care Time (In Minutes): 30 Vital Signs - Recent Vital Signs Vital Signs: Vital Signs (Last 8 hours) Temp Pulse Resp BP Pulse Ox 10/11/16 17:07 98.0 F 55 L 14 118/70 98 - VS Reviewed Vital Signs Reviewed: Yes Discharge Clinical Impression: Ureterolithiasis Discharge Disposition: Discharged to Home Condition: Stable Prescriptions / Orders: Tamsulosin HCl [Flomax] 0.4 mg PO DAILY #7 cap Hydrocodone/Acetaminophen [[place] 5-325 Tablet] 1 each PO Q6H PRN #15 tablet PRN Reason: Pain Ketorolac Tromethamine [Toradol] 10 mg PO Q6H PRN #15 tablet PRN Reason: Pain Patient Instructions Given at Discharge: Kidney Stones (ED) Additional Instructions: There is a kidney stone in the tube between the kidney and the bladder that is causing her current right sided pain. This stone should pass on its own however occasionally they do get stuck and require further treatment. Push fluids. Strain urine. You have been prescribed Toradol 10 mg every 6 hours as needed for pain as well as [place] 5/325 which he can take one every 6 hours as needed for pain. In addition your been prescribed Flomax 0.4 mg daily which should be taken at night. Return to the emergency room if increased pain, fever , vomiting or dehydration, worsening or change in symptoms. Follow-up with [facility] urology ([phone]) in [place] or with primary care next week. Follow Up With: JOSH PENALOZA [Primary Care Provider] -
[2016-10-11] MEDS ORDERED: KETOROLAC 15 MG/1 ML VIAL IVP ONE (18:19)
[2016-10-11 18:29] LABS: BILIRUBIN,URINE SMALL (NEG); COLOR,URINE RED; GLUCOSE, URINE (UA) NEGATIVE (NEG); NITRATE,URINE NEGATIVE (NEG); OCCULT BLOOD,URINE LARGE (NEG); PH,URINE 5.5 (5.0-8.5); PROTEIN,URINE 100 mg/dl (NEG)
[2016-10-11 18:31] LABS: CLARITY,URINE TURBID (CLEAR); RBC,URINE >100 /hpf; SQUAMOUS EPITHELIAL CELL,UR RARE; URINE SAMPLE TYPE VOIDED SPECIMEN
[2016-10-11] MEDS ORDERED: KETOROLAC 60 MG/2 ML VIAL IM ONE (18:38)
[2016-10-11] MEDS ORDERED: TAMSULOSIN 0.4 MG CAPSULE PO ONE (18:38)
== END 2016-10-11 19:28 | disposition home or self-care (01) ==
LOC: ER 16:57
DX: N13.2 Hydronephrosis with renal and ureteral calculous obstruction (principal); R10.31 Right lower quadrant pain; R11.0 Nausea; R10.11 Right upper quadrant pain
CPT/HCPCS: 74177; 80053; 81001; 81003; 82150; 83690; 84703; 85025; 86140; 96372; 96374; 96375; 99283 ×2; J1885 ×2; J2270; J2405; J7030